=== PATIENT | female | born 1930 | race Caucasian/White ===

== ENCOUNTER 2017-09-15 17:07 | Inpatient (IN) | payer MEDICARE, OTHER ==
[2017-09-15] MEDS ORDERED: Meropenem 1 GM in Sodium Chloride 0.9% 100 ML IV SCH (18:00)
--- NOTE | 2017-09-15 18:05 | EDM.PDOC ---
ED HPI GENERAL MEDICAL PROBLEM - General Chief Complaint: Fever Stated Complaint: BACKPAIN WEAKNESS Time Seen by Provider: 09/15/17 17:30 Source of Information: Reports: Family, Fdc Records History Limitations: Reports: Altered Mental Status - History of Present Illness INITIAL COMMENTS - FREE TEXT/NARRATIVE: c/o cough x 1d and fever x 12h pt with cough last night at NH per family, developed a fever today has had flu vax no prior hx of pneumonia or pul dx, no prior hx of CV disease smoked just a few years as a teenager, smoked is DNR/DNI has gotten weaker in past yr, walked independently 1y ago, used a walker x 6m, in w/c and not walking x 2d h/o recent falls, in ED 8d ago and CT showed severe compression fx T11 that appeared old, has had inc'd back pain nonverbal today d/t dementia, family states she rarely speaks has had freq UTIs in past 2-3y, incontinent, UC 9m ago with 10-50k Staph simulans resistant to levo and cipro last BUN/creat 22/1.0 from 9m ago h/o upper GI bleed 03/03, given 2u PRBC with inc hgb 8.6 to 11.3, last hgb 13.6 from 9m ago has allergy to amoxicillin and Augmentin PO 88% on RA, 92% on 2 l/min NC, temp 38.1, initial HR 95, HR 111 with EKG, RR 20, BP 140/[address] 111, nonspecific t-wave flattening V1-3, III and F Right Hip Pain Score (Numeric/FACES): 3 - Related Data Allergies Allergy/AdvReac Type Severity Reaction Status Date / Time amoxicillin trihydrate Allergy Stomach Verified 09/15/17 17:13 [From Augmentin] Upset potassium clavulanate Allergy Stomach Verified 09/15/17 17:13 [From Augmentin] Upset rofecoxib [From Vioxx] Allergy Stomach Verified 09/15/17 17:13 Upset Home Meds: Home Meds Ferrous Sulfate [Feosol] 325 mg PO BID 11/30/14 [History] Levothyroxine [Synthroid] 50 mcg PO ACBREAKFAST 11/30/14 [History] Cholecalciferol (Vitamin D3) [Vitamin D3] 2,000 unit PO DAILY 03/10/16 [History] Cyanocobalamin (Vitamin B-12) [Vitamin B-12] 1,000 mcg PO DAILY 03/10/16 [ History] Furosemide [Lasix] 40 mg PO DAILY 03/10/16 [History] Gabapentin [Neurontin] 100 mg PO BID 03/10/16 [History] Acetaminophen 1,000 mg PO Q8H PRN #100 tablet 03/13/16 [Rx] Past Medical History Other HEENT History: suspect glaucoma, is not on medications Cardiovascular History: Reports: CAD, Heart Failure, High Cholesterol, Hypertension, SOB on Exertion Gastrointestinal History: Reports: GERD, Other (See Below) Other Gastrointestinal History: hx of abdominal hernia. Genitourinary History: Reports: Urinary Incontinence, UTI, Recurrent [employer] History: Reports: Musculoskeletal History: Reports: Back Pain, Chronic, Osteoarthritis, Other ( See Below) Other Musculoskeletal History: fall 1 week ago Neurological History: Reports: Other (See Below) Other Neuro History: dementia Psychiatric History: Reports: Dementia, Depression Endocrine/Metabolic History: Reports: Hypothyroidism Hematologic History: Reports: Anemia, B12 Deficiency, Iron Deficiency Other Hematologic History: vitamin D deficiency Dermatologic History: Reports: None - Infectious Disease History Infectious Disease History: Reports: Hepatitis A - Past Surgical History HEENT Surgical History: Reports: Cataract Surgery Other Respiratory Surgeries/Procedures: report says that pt has external dyspnea Endocrine Surgical History: Reports: None Social & Family History - Family History Family Medical History: Noncontributory Cardiac: Reports: Prior Cardiac Arrest Respiratory: Reports: TB Other Respiratory Family Hisory: pt's dad d/t TB Oncologic: Reports: Other (See Below) Other Oncologic Family History: stomach cancer- mother - Tobacco Use Smoking Status *Q: Never Smoker Second Hand Smoke Exposure: No - Caffeine Use Caffeine Use: Reports: None - Alcohol Use Days Per Week of Alcohol Use: 0 - Recreational Drug Use Recreational Drug Use: No ED ROS GENERAL - Review of Systems Review Of Systems: See Below Constitutional: Reports: Fever, Malaise, Weakness, Decreased Appetite. Denies: Night Sweats HEENT: Reports: No Symptoms Respiratory: Reports: Shortness of Breath, Wheezing Cardiovascular: Reports: No Symptoms Endocrine: Reports: No Symptoms GI/Abdominal: Reports: No Symptoms : Reports: Incontinence Musculoskeletal: Reports: No Symptoms Skin: Reports: No Symptoms Neurological: Reports: Confusion, Trouble Speaking, Difficulty Walking Psychiatric: Reports: No Symptoms Hematologic/Lymphatic: Reports: No Symptoms Immunologic: Reports: No Symptoms ED EXAM, GENERAL - Physical Exam Exam: See Below Exam Limited By: No Limitations General Appearance: Alert, WD/WN, Mild Distress, Other (makes eye contact, follows commands (open mouth, say ah), does not reply to questions, alert) Eye Exam: Bilateral Eye: Normal Inspection Ears: Normal External Exam Nose: Normal Inspection, Normal Mucosa, No Blood Throat/Mouth: Normal Inspection, Normal Lips, Normal Gums, Normal Oropharynx, Normal Voice, No Airway Compromise Head: Atraumatic, Normocephalic Neck: Normal Inspection, Supple, Non-Tender, Full Range of Motion. No: Carotid Bruit, Lymphadenopathy (R), Lymphadenopathy (L) Respiratory/Chest: No Respiratory Distress, No Accessory Muscle Use, Other ( rales at R anterior chest and LLL posteriorly, no rales at R base, fair AE, symmetric, no cough observed, no wheeze appreciated, no dyspnea, no accessory muscles) Cardiovascular: Regular Rate, Rhythm, Other (2/6 YAYO at LSB, Ras wraps around both LEs, 1-2+ DP pulse b/l, trace pretib edema b/l, no foot edema, symmetric) GI/Abdominal: Normal Bowel Sounds, Soft, Non-Tender, No Organomegaly, No Distention, No Mass, Other (obese). No: Rigid, Rebound Extremities: Normal Inspection, Non-Tender Neurological: Alert, No Motor/Sensory Deficits, Slow to Respond Skin Exam: Warm Lymphatic: No Adenopathy Course - Vital Signs Last Recorded V/S: Last Vital Signs Temp 38.1 C 09/15/17 17:15 Pulse 95 09/15/17 17:15 Resp 20 09/15/17 17:15 BP 140/81 09/15/17 17:15 Pulse Ox 92 L 09/15/17 17:15 - Orders/Labs/Meds Orders: Active Orders 24 hr Category Date Time Status EKG Documentation Completion [RC] ASDIRECTED Care 09/15/17 17:46 Ordered Chest 1V Frontal [CR] Stat Exams 09/15/17 17:44 Ordered CULTURE BLOOD [BC] Urgent Lab 09/15/17 17:46 Ordered CULTURE BLOOD [BC] Urgent Lab 09/15/17 17:46 Ordered UA W/MICROSCOPIC [URIN] Stat Lab 09/15/17 17:44 Ordered UA W/O MICROSCOPIC [URIN] Stat Lab 09/15/17 19:08 Ordered Meropenem [Merrem] 1 gm Med 09/15/17 18:00 Ordered Sodium Chloride 0.9% [Normal Saline] 100 ml IV Q8H Sodium Chloride 0.9% [Saline Flush] Med 09/15/17 18:11 Active 10 ml FLUSH ASDIRECTED PRN Blood Culture x2 Reflex Set [OM.PC] Urgent Oth 09/15/17 17:44 Ordered Saline Lock Insert [OM.PC] Routine Oth 09/15/17 18:11 Ordered EKG 12 Lead [EK] Routine Ther 09/15/17 17:44 Ordered Medication Orders Meropenem 1 gm/ Sodium (Chloride) 100 mls @ 200 mls/hr IV Q8H ROXANA Last Admin: 09/15/17 19:02 Dose: 200 mls/hr Sodium Chloride (Saline Flush) 10 ml FLUSH ASDIRECTED PRN PRN Reason: Keep Vein Open Last Admin: 09/15/17 18:12 Dose: 10 ml Labs: Laboratory Tests 09/15/17 09/15/17 09/15/17 Range/Units 18:00 18:00 18:00 WBC 5.5 (4.5-12.0) X10-3/uL RBC 4.71 (3.23-5.20) x10(6)uL Hgb 14.0 (11.5-15.5) g/dL Hct 41.9 (30.0-51.3) % MCV 89.0 (80-96) fL MCH 29.7 (27.7-33.6) pg MCHC 33.4 (32.2-35.4) g/dL RDW 14.3 (11.5-15.5) % Plt Count 205 (125-369) X10(3)uL MPV 10.4 (7.4-10.4) fL Neut % (Auto) 56.3 (46-82) % Lymph % (Auto) 30.5 (13-37) % Keith % (Auto) 11.9 (4-12) % Eos % (Auto) 0 L (1.0-5.0) % Baso % (Auto) 1 (0-2) % Neut # (Auto) 3.1 (1.6-8.3) # Lymph # (Auto) 1.7 (0.6-5.0) # Keith # (Auto) 0.7 (0.0-1.3) # Eos # (Auto) 0.0 (0.0-0.8) # Baso # (Auto) 0.0 (0.0-0.2) # Sodium 143 (135-145) mmol/L Potassium 4.1 (3.5-5.3) mmol/L Chloride 102 (100-110) mmol/L Carbon Dioxide 33 H (21-32) mmol/L BUN 15 (7-18) mg/dL Creatinine 1.1 H (0.55-1.02) mg/dL Est Cr Clr Drug Dosing 30.37 mL/min Estimated GFR (MDRD) 47 L (>60) BUN/Creatinine Ratio 13.6 (9-20) Glucose 109 (80-116) mg/dL Lactic Acid (0.4-2.2) mmol/L Calcium 8.8 (8.6-10.2) mg/dL Total Bilirubin 0.2 (0.1-1.3) mg/dL AST 61 H (5-25) IU/L ALT 60 H (12-36) U/L Alkaline Phosphatase 143 H (56-112) IU/L Troponin I < 0.017 L (<0.017-0.056) ng/mL C-Reactive Protein 5.0 H* (0.5-0.9) mg/dL NT-Pro-B Natriuret Pep 585 H (<=450) pg/mL Total Protein 7.0 (6.0-8.0) g/dL Albumin 2.9 L (3.2-4.6) g/dL Globulin 4.1 g/dL Albumin/Globulin Ratio 0.7 Urine Color (YELLOW) Urine Appearance (CLEAR) Urine pH (5.0-6.5) Ur Specific [place] (1.010-1.025) Urine Protein (NEGATIVE) mg/dL Urine Glucose (UA) (NEGATIVE) mg/dL Urine Ketones (NEGATIVE) mg/dL Urine Occult Blood (NEGATIVE) Urine Nitrite (NEGATIVE) Urine Bilirubin (NEGATIVE) Urine Urobilinogen (NEGATIVE) mg/dL Ur Leukocyte Esterase (NEGATIVE) Urine RBC Urine WBC Ur Epithelial Cells Ur Squamous Epith Cells Ur Renal Epithelial Cell Calcium Oxalate Crystal Uric Acid Crystals Triple Phos Crystals Other Crystals Amorphous Sediment Urine Bacteria Hyaline Casts Fine Granular Casts Coarse Granular Casts Waxy Casts RBC Casts WBC Casts Urine Mucus Urine Trichomonas Urine Yeast Urine Sperm Ur Oval Fat Bodies Urinalysis Comment 09/15/17 09/15/17 Range/Units 18:00 18:40 WBC (4.5-12.0) X10-3/uL RBC (3.23-5.20) x10(6)uL Hgb (11.5-15.5) g/dL Hct (30.0-51.3) % MCV (80-96) fL MCH (27.7-33.6) pg MCHC (32.2-35.4) g/dL RDW (11.5-15.5) % Plt Count (125-369) X10(3)uL MPV (7.4-10.4) fL Neut % (Auto) (46-82) % Lymph % (Auto) (13-37) % Keith % (Auto) (4-12) % Eos % (Auto) (1.0-5.0) % Baso % (Auto) (0-2) % Neut # (Auto) (1.6-8.3) # Lymph # (Auto) (0.6-5.0) # Keith # (Auto) (0.0-1.3) # Eos # (Auto) (0.0-0.8) # Baso # (Auto) (0.0-0.2) # Sodium (135-145) mmol/L Potassium (3.5-5.3) mmol/L Chloride (100-110) mmol/L Carbon Dioxide (21-32) mmol/L BUN (7-18) mg/dL Creatinine (0.55-1.02) mg/dL Est Cr Clr Drug Dosing mL/min Estimated GFR (MDRD) (>60) BUN/Creatinine Ratio (9-20) Glucose (80-116) mg/dL Lactic Acid 0.7 (0.4-2.2) mmol/L Calcium (8.6-10.2) mg/dL Total Bilirubin (0.1-1.3) mg/dL AST (5-25) IU/L ALT (12-36) U/L Alkaline Phosphatase (56-112) IU/L Troponin I (<0.017-0.056) ng/mL C-Reactive Protein (0.5-0.9) mg/dL NT-Pro-B Natriuret Pep (<=450) pg/mL Total Protein (6.0-8.0) g/dL Albumin (3.2-4.6) g/dL Globulin g/dL Albumin/Globulin Ratio Urine Color Yellow (YELLOW) Urine Appearance Slightly cloudy (CLEAR) Urine pH 5.0 (5.0-6.5) Ur Specific [place] 1.020 (1.010-1.025) Urine Protein Negative (NEGATIVE) mg/dL Urine Glucose (UA) Normal (NEGATIVE) mg/dL Urine Ketones Negative (NEGATIVE) mg/dL Urine Occult Blood Large H (NEGATIVE) Urine Nitrite Negative (NEGATIVE) Urine Bilirubin Negative (NEGATIVE) Urine Urobilinogen 1 H (NEGATIVE) mg/dL Ur Leukocyte Esterase Negative (NEGATIVE) Urine RBC Cancelled Urine WBC Cancelled Ur Epithelial Cells Cancelled Ur Squamous Epith Cells Cancelled Ur Renal Epithelial Cell Cancelled Calcium Oxalate Crystal Cancelled Uric Acid Crystals Cancelled Triple Phos Crystals Cancelled Other Crystals Cancelled Amorphous Sediment Cancelled Urine Bacteria Cancelled Hyaline Casts Cancelled Fine Granular Casts Cancelled Coarse Granular Casts Cancelled Waxy Casts Cancelled RBC Casts Cancelled WBC Casts Cancelled Urine Mucus Cancelled Urine Trichomonas Cancelled Urine Yeast Cancelled Urine Sperm Cancelled Ur Oval Fat Bodies Cancelled Urinalysis Comment Cancelled Meds: Medications Generic Name Dose Route Start Last Admin Trade Name Freq PRN Reason Stop Dose Admin Meropenem 1 gm/ Sodium 100 mls @ 200 mls/hr 09/15/17 18:00 09/15/17 19:02 Chloride IV 200 mls/hr Q8H ROXANA Administration Sodium Chloride 10 ml 09/15/17 18:11 09/15/17 18:12 Saline Flush FLUSH 10 ml ASDIRECTED PRN Administration Keep Vein Open - Re-Assessments/Exams Free Text/Narrative Re-Assessment/Exam: 09/15/17 19:12 CBC neg with WBC 5 and no shift, however CRP 5.0 CxR 1 view with haziness at L base c/w LLL pneumonia (also rales at L base) lactic acid 0.7, creat 1.1 and baseline u/a neg will admit being given meropenem 1 gm IV 8h d/t h/o PCN allergy and prior Staph resistance to levo and cipro family agrees pneumonia appears to be at an early stage 09/15/17 19:15 Departure - Departure Time of Disposition: 19:14 Disposition: Admitted As Inpatient 67 Condition: Good Clinical Impression: Left lower lobe pneumonia, Elevated LFTs, Elevated brain natriuretic peptide ( BNP) level, DNR (do not resuscitate), DNI (do not intubate), Hypoalbuminemia - Discharge Information Referrals: Lesley Gamboa, [employer] [Primary Care Provider] - Forms: ED Department Discharge - My Orders Last 24 Hours: My Active Orders 09/15/17 17:44 Chest 1V Frontal [CR] Stat UA W/MICROSCOPIC [URIN] Stat Blood Culture x2 Reflex Set [OM.PC] Urgent EKG 12 Lead [EK] Routine 09/15/17 17:46 EKG Documentation Completion [RC] ASDIRECTED CULTURE BLOOD [BC] Urgent CULTURE BLOOD [BC] Urgent 09/15/17 18:00 Meropenem [Merrem] 1 gm Sodium Chloride 0.9% [Normal Saline] 100 ml IV Q8H 09/15/17 18:11 Sodium Chloride 0.9% [Saline Flush] 10 ml FLUSH ASDIRECTED PRN Saline Lock Insert [OM.PC] Routine 09/15/17 19:08 UA W/O MICROSCOPIC [URIN] Stat - Assessment/Plan Last 24 Hours: My Active Orders 09/15/17 17:44 Chest 1V Frontal [CR] Stat UA W/MICROSCOPIC [URIN] Stat Blood Culture x2 Reflex Set [OM.PC] Urgent EKG 12 Lead [EK] Routine 09/15/17 17:46 EKG Documentation Completion [RC] ASDIRECTED CULTURE BLOOD [BC] Urgent CULTURE BLOOD [BC] Urgent 09/15/17 18:00 Meropenem [Merrem] 1 gm Sodium Chloride 0.9% [Normal Saline] 100 ml IV Q8H 09/15/17 18:11 Sodium Chloride 0.9% [Saline Flush] 10 ml FLUSH ASDIRECTED PRN Saline Lock Insert [OM.PC] Routine 09/15/17 19:08 UA W/O MICROSCOPIC [URIN] Stat
[2017-09-15] MEDS: Sodium Chloride 0.9% 10 ML Syringe FLUSH PRN ×2 (18:12→20:36)
[2017-09-15] MEDS ORDERED: Sodium Chloride 0.9% 10 ML Syringe FLUSH PRN (19:19)
[2017-09-15] MEDS ORDERED: Acetaminophen 325 MG Tab PO PRN (19:19)
[2017-09-15] MEDS ORDERED: Magnesium Hydroxide 400 MG/5 ML Susp 30 ML Cup PO PRN (19:19)
[2017-09-15] MEDS ORDERED: Ondansetron 4 MG/2 ML SDV IV PRN (19:19)
[2017-09-15] MEDS ORDERED: Bisacodyl 5 MG Tab PO PRN (19:19)
[2017-09-15] MEDS: Gabapentin 100 MG Cap PO SCH (20:33)
[2017-09-15] MEDS: Ferrous Sulfate 325 MG Tab PO SCH (20:33)
[2017-09-15] MEDS: Enoxaparin 40 MG/0.4 ML Syringe SUBCUT SCH (20:34)
[2017-09-15] MEDS: Pantoprazole 40 MG Vial IVPUSH SCH (20:34)
[2017-09-15] MEDS: Albuterol 0.083% 2.5 MG/3 ML Neb Soln NEB SCH (20:38)
[2017-09-15] MEDS: Acetaminophen/HYDROcodone 325-7.5 MG Tab PO PRN (21:10)
[2017-09-15] MEDS: Memantine 10 MG Tab PO SCH (21:49)
[2017-09-16] MEDS: Levothyroxine 50 MCG Tab PO SCH (05:10)
[2017-09-16] MEDS: Pantoprazole 40 MG Vial IVPUSH SCH (06:35)
[2017-09-16] MEDS: Sodium Chloride 0.9% 10 ML Syringe FLUSH PRN ×2 (06:35→08:47)
[2017-09-16] MEDS: Acetaminophen/HYDROcodone 325-7.5 MG Tab PO PRN ×3 (07:15→19:17)
[2017-09-16] MEDS ORDERED: Meropenem 1 GM SDV IV SCH (08:00)
[2017-09-16] MEDS ORDERED: Meropenem 1 GM in Sodium Chloride 0.9% 100 ML IV SCH (08:00)
--- NOTE | 2017-09-16 08:09 | PCM.HP ---
H&P History of Present Illness - General Date of Service: 09/16/17 Admit Problem/Dx: Admission Diagnosis/Problem Admission Diagnosis/Problem Left lower lobe pneumonia Source of Information: Old Records History Limitations: Reports: Altered Mental Status - History of Present Illness Initial Comments - Free Text/Narative: Amina is an 87-year-old female admitted through the ER last night. She presented a cough for a day fever for a couple days low-grade. Diagnosed with left lower lobe pneumonia. She has had decreased energy,and failing health over the last couple months .She also has had frequent falls. Betty has dementia that has been stable, a compression fracture T11 that was discovered about 8 days ago, pain difficult to control. She also has major depression that has been well-controlled. She has obesity, hyperlipidemia and hypertension stable. History is difficult because patient is mostly nonverbal therefore I obtained this hystory from the clinic records and nursing staff. Right Hip Pain Score (Numeric/FACES): 4 Lower Back Pain Score (Numeric/FACES): 2 - Related Data Allergies/Adverse Reactions: Allergies Allergy/AdvReac Type Severity Reaction Status Date / Time amoxicillin trihydrate Allergy Stomach Verified 09/15/17 17:13 [From Augmentin] Upset potassium clavulanate Allergy Stomach Verified 09/15/17 17:13 [From Augmentin] Upset rofecoxib [From Vioxx] Allergy Stomach Verified 09/15/17 17:13 Upset Home Medications: Home Meds Ferrous Sulfate [Feosol] 325 mg PO DAILY 11/30/14 [History] Levothyroxine [Synthroid] 50 mcg PO ACBREAKFAST 11/30/14 [History] Cholecalciferol (Vitamin D3) [Vitamin D3] 2,000 unit PO DAILY 03/10/16 [History] Cyanocobalamin (Vitamin B-12) [Vitamin B-12] 1,000 mcg PO DAILY 03/10/16 [ History] Furosemide [Lasix] 40 mg PO DAILY 03/10/16 [History] Gabapentin [Neurontin] 100 mg PO DAILY 03/10/16 [History] Acetaminophen 1,000 mg PO Q8H PRN #100 tablet 03/13/16 [Rx] Acetaminophen [Tylenol] 650 mg PO Q4H PRN 09/15/17 [History] Cranberry 500 mg PO DAILY 09/15/17 [History] FLUoxetine HCl [Prozac] 60 mg PO DAILY 09/15/17 [History] Hydrocodone/Acetaminophen [[place] 7.5-325 Tablet] 1 tab PO Q4H PRN 09/15/17 [ History] Memantine HCl [Namenda] 10 mg PO BID 09/15/17 [History] Pantoprazole Sodium [Protonix] 40 mg PO DAILY 09/15/17 [History] Polyethylene Glycol 3350 [Miralax] 17 gm PO DAILY 09/15/17 [History] Vit C/Olga Ac/Lut/Copper/ZnOx [Preservision Lutein Softgel] 1 cap PO BID [History] Past Medical History Other HEENT History: suspect glaucoma, is not on medications Cardiovascular History: Reports: CAD, Heart Failure, High Cholesterol, Hypertension, SOB on Exertion Gastrointestinal History: Reports: GERD, Other (See Below) Other Gastrointestinal History: hx of abdominal hernia. Genitourinary History: Reports: Urinary Incontinence, UTI, Recurrent SPECIALTY THERAPIST History: Reports: Musculoskeletal History: Reports: Back Pain, Chronic, Osteoarthritis, Other ( See Below) Other Musculoskeletal History: fall 1 week ago Neurological History: Reports: Other (See Below) Other Neuro History: dementia Psychiatric History: Reports: Dementia, Depression Endocrine/Metabolic History: Reports: Hypothyroidism Hematologic History: Reports: Anemia, B12 Deficiency, Iron Deficiency Other Hematologic History: vitamin D deficiency Dermatologic History: Reports: None - Infectious Disease History Infectious Disease History: Reports: Hepatitis A - Past Surgical History HEENT Surgical History: Reports: Cataract Surgery Other Respiratory Surgeries/Procedures: report says that pt has external dyspnea Endocrine Surgical History: Reports: None Social & Family History - Family History Family Medical History: Noncontributory Cardiac: Reports: Prior Cardiac Arrest Respiratory: Reports: TB Other Respiratory Family Hisory: pt's dad d/t TB Oncologic: Reports: Other (See Below) Other Oncologic Family History: stomach cancer- mother - Tobacco Use Smoking Status *Q: Never Smoker Second Hand Smoke Exposure: No - Caffeine Use Caffeine Use: Reports: None - Alcohol Use Days Per Week of Alcohol Use: 0 - Recreational Drug Use Recreational Drug Use: No H&P Review of Systems - Review of Systems: Review Of Systems: ROS reveals no pertinent complaints other than HPI. Exam - Exam Exam: See Below - Vital Signs Vital Signs: Last Vital Signs Temp 98.1 F 03/01/18 04:00 Pulse 107 H 09/16/17 04:00 Resp 20 09/16/17 04:00 BP 134/84 09/16/17 04:00 Pulse Ox 94 L 09/16/17 04:00 Weight: 100.244 kg - Exam Quality Assessment: Supplemental Oxygen General: Alert. No: Oriented, Mild Distress HEENT: PERRLA Neck: Supple, Trachea Midline Lungs: Clear to Auscultation Cardiovascular: Regular Rate GI/Abdominal Exam: Non-Tender (Female) Exam: Deferred Rectal (Female) Exam: Deferred Back Exam: Normal Inspection, Muscle Spasm, Paraspinal Tenderness, Vertebral Tenderness Extremities: Leg Pain. No: Pedal Edema, Redness Skin: Warm Neurological: Cranial Nerves Intact Psychiatric: Depressed - Patient Data Lab Results Last 24 hrs: Laboratory Results - last 24 hr 09/16/17 Range/Units 06:15 Troponin I < 0.017 L (<0.017-0.056) ng/mL TSH, Ultra Sensitive 1.35 (0.36-3.74) IU/mL Result Diagrams: 09/15/17 18:00 09/15/17 18:00 *Q Meaningful Use (ADM) - VTE *Q VTE Criteria *Q: - Stroke *Q Stroke Criteria *Q: - AMI *Q AMI Criteria *Q: - Problem List (1) URI (upper respiratory infection) SNOMED Code(s): 35646882 ICD Code: J06.9 - ACUTE UPPER RESPIRATORY INFECTION, UNSPECIFIED Status: Acute Current Visit: Yes Qualifiers: URI type: unspecified viral URI Qualified Code(s): J06.9 - Acute upper respiratory infection, unspecified (2) Physical deconditioning SNOMED Code(s): 03973965644818 ICD Code: R53.81 - OTHER MALAISE Status: Acute Current Visit: Yes (3) Dementia SNOMED Code(s): 98143623 ICD Code: F03.90 - UNSPECIFIED DEMENTIA WITHOUT BEHAVIORAL DISTURBANCE Status: Acute Current Visit: Yes Qualifiers: Dementia type: Alzheimer's disease Alzheimer's disease onset: late-onset (4) Frequent falls SNOMED Code(s): 589826275 ICD Code: R29.6 - REPEATED FALLS Status: Acute Current Visit: Yes (5) MDD (major depressive disorder) SNOMED Code(s): 328643007 ICD Code: F32.9 - MAJOR DEPRESSIVE DISORDER, SINGLE EPISODE, UNSPECIFIED Status: Acute Current Visit: Yes Qualifiers: Major depression recurrence: recurrent Major depression episode severity: moderate (6) ULI (generalized anxiety disorder) SNOMED Code(s): 37089812 ICD Code: F41.1 - GENERALIZED ANXIETY DISORDER Status: Chronic Current Visit: Yes (7) GERD (gastroesophageal reflux disease) SNOMED Code(s): 806097004 ICD Code: K21.9 - GASTRO-ESOPHAGEAL REFLUX DISEASE WITHOUT ESOPHAGITIS Status: Acute Current Visit: Yes Qualifiers: Esophagitis presence: esophagitis presence not specified Qualified Code(s) : K21.9 - Gastro-esophageal reflux disease without esophagitis (8) Anemia SNOMED Code(s): 397392643 ICD Code: D64.9 - ANEMIA, UNSPECIFIED Status: Acute Current Visit: Yes Qualifiers: Anemia type: B12 deficiency (9) Hypothyroidism SNOMED Code(s): 56741868 ICD Code: E03.9 - HYPOTHYROIDISM, UNSPECIFIED Status: Chronic Current Visit: Yes Qualifiers: Hypothyroidism type: unspecified Qualified Code(s): E03.9 - Hypothyroidism , unspecified (10) Macular degeneration SNOMED Code(s): 749106891 ICD Code: H35.30 - UNSPECIFIED MACULAR DEGENERATION Status: Acute Current Visit: Yes Qualifiers: Eye laterality: unspecified (11) Vitamin D deficiency SNOMED Code(s): 05700356 ICD Code: E55.9 - VITAMIN D DEFICIENCY, UNSPECIFIED Status: Acute Current Visit: Yes (12) Compression fracture SNOMED Code(s): 913269995 ICD Code: AIX5592 - Status: Acute Current Visit: Yes Problem List Initiated/Reviewed/Updated: Yes Orders Last 24hrs: Active Orders 24 hr Category Date Time Status Admission Status [Patient Status] [ADT] Routine ADT 09/15/17 19:16 Active Patient Status [ADT] Routine ADT 09/15/17 19:19 Active Insert Urinary Catheter [OM.PC] Q24H Care 09/15/17 19:15 Ordered Oxygen Therapy [RC] PRN Care 09/15/17 19:19 Active RT Aerosol Therapy [RC] ASDIRECTED Care 09/15/17 19:23 Active Up With Assistance [RC] ASDIRECTED Care 09/15/17 19:19 Active Vital Signs [RC] Q4H Care 09/15/17 19:19 Active Regular Diet [DIET] Diet 09/16/17 Breakfast Active Acetaminophen [Tylenol] Med 09/15/17 19:19 Active 650 mg PO Q4H PRN Acetaminophen/HYDROcodone [[place] 325-7.5 MG] Med 09/15/17 20:44 Active 1 tab PO Q4H PRN Albuterol [Proventil Neb Soln] Med 09/15/17 21:00 Active 2.5 mg NEB QIDRT Bisacodyl [Dulcolax] Med 09/15/17 19:19 Active 5 mg PO DAILY PRN Enoxaparin [Lovenox] Med 09/15/17 19:30 Active 40 mg SUBCUT Q24H FLUoxetine [PROzac] Med 09/16/17 09:00 Active 60 mg PO DAILY Ferrous Sulfate Med 09/15/17 21:00 Active 325 mg PO BID Furosemide [Lasix] Med 09/16/17 09:00 Active 40 mg PO DAILY Gabapentin [Neurontin] Med 09/15/17 21:00 Active 100 mg PO BID Levothyroxine [Synthroid] Med 09/16/17 06:00 Active 50 mcg PO DAILY@0600 Magnesium Hydroxide [Milk of Magnesia] Med 09/15/17 19:19 Active 30 ml PO Q12H PRN Memantine [Namenda] Med 09/15/17 21:00 Active 10 mg PO BID Meropenem [Merrem] Med 09/16/17 08:00 Active 1 gm IV Q12H Ondansetron [Zofran] Med 09/15/17 19:19 Active 4 mg IV Q4H PRN Pantoprazole [ProTONIX IV] Med 09/15/17 19:30 Active 40 mg IVPUSH Q12H Polyethylene Glycol 3350 [MiraLAX] Med 09/16/17 09:00 Active 17 gm PO DAILY Sodium Chloride 0.9% [Saline Flush] Med 09/15/17 19:19 Active 10 ml FLUSH ASDIRECTED PRN Saline Lock Insert [OM.PC] Routine Oth 09/15/17 19:19 Ordered Resuscitation Status Routine Resus Stat 09/15/17 19:19 Ordered EKG 12 Lead [EK] AM Ther 09/16/17 05:11 Ordered Medication Orders Acetaminophen (Tylenol) 650 mg PO Q4H PRN PRN Reason: Pain (Mild 1-3)/fever Hydrocodone Bitart/Acetaminophen ([place] 325-7.5 Mg) 1 tab PO Q4H PRN PRN Reason: Pain Last Admin: 09/16/17 07:15 Dose: 1 tab Admin: 09/15/17 21:10 Dose: 1 tab Albuterol (Proventil Neb Soln) 2.5 mg NEB QIDRT [facility] Last Admin: 09/15/17 20:38 Dose: 2.5 mg Bisacodyl (Dulcolax) 5 mg PO DAILY PRN PRN Reason: Constipation Enoxaparin Sodium (Lovenox) 40 mg SUBCUT Q24H [facility] Last Admin: 09/15/17 20:34 Dose: 40 mg Ferrous Sulfate (Ferrous Sulfate) 325 mg PO BID [facility] Last Admin: 09/15/17 20:33 Dose: 325 mg Fluoxetine HCl (Prozac) 60 mg PO DAILY [facility] Furosemide (Lasix) 40 mg PO DAILY [facility] Gabapentin (Neurontin) 100 mg PO BID [facility] Last Admin: 09/15/17 20:33 Dose: 100 mg Levothyroxine Sodium (Synthroid) 50 mcg PO DAILY@0600 [facility] Last Admin: 09/16/17 05:10 Dose: 50 mcg Magnesium Hydroxide (Milk Of Magnesia) 30 ml PO Q12H PRN PRN Reason: Constipation Memantine (Namenda) 10 mg PO BID [facility] Last Admin: 09/15/17 21:49 Dose: 10 mg Meropenem (Merrem) 1 gm IV Q12H [facility] Ondansetron HCl (Zofran) 4 mg IV Q4H PRN PRN Reason: Nausea/Vomiting Pantoprazole Sodium (Protonix Iv) 40 mg IVPUSH Q12H [facility] Last Admin: 09/16/17 06:35 Dose: 40 mg Admin: 09/15/17 20:34 Dose: 40 mg Polyethylene Glycol (Miralax) 17 gm PO DAILY [facility] Sodium Chloride (Saline Flush) 10 ml FLUSH ASDIRECTED PRN PRN Reason: Keep Vein Open Last Admin: 09/16/17 06:35 Dose: 10 ml Admin: 09/15/17 20:36 Dose: 10 ml Admin: 09/15/17 18:12 Dose: 10 ml Sodium Chloride (Saline Flush) 10 ml FLUSH ASDIRECTED PRN PRN Reason: Keep Vein Open Assessment/Plan Comment:: I reviewed the chest x-ray myself am not terribly convinced that she has pneumonia.She has had no objective fever,and no WBC elevation. I will discontinue Meropenem.She may just have bronchitis,or CHF .Additionally,I m not able to explain why she is on oxygen at this time, will try to wean off. I have resumed her home medications. Consult physical and outpatient therapy emergency medical tech to determine disposition after current hospitalization.
[2017-09-16] MEDS: Albuterol 0.083% 2.5 MG/3 ML Neb Soln NEB SCH ×4 (08:39→20:53)
[2017-09-16] MEDS: FLUoxetine 20 MG Cap PO SCH (08:46)
[2017-09-16] MEDS: Gabapentin 100 MG Cap PO SCH ×2 (08:46→20:53)
[2017-09-16] MEDS: Furosemide 40 MG Tab PO SCH (08:46)
[2017-09-16] MEDS: Memantine 10 MG Tab PO SCH ×2 (08:46→20:53)
[2017-09-16] MEDS: Polyethylene Glycol 3350 Powder 17 GM Packet PO SCH (08:46)
[2017-09-16] MEDS: Ferrous Sulfate 325 MG Tab PO SCH ×2 (08:46→20:53)
[2017-09-16] MEDS ORDERED: Acetaminophen 500 MG Tab PO PRN (08:52)
[2017-09-16] MEDS ORDERED: Acetaminophen 325 MG Tab PO PRN (08:52)
[2017-09-16] MEDS ORDERED: FLUoxetine 20 MG Cap PO SCH (09:00)
[2017-09-16] MEDS: Lutein/Minerals/Vitamin C/Vitamin E Acetate Cap PO SCH ×2 (09:26→20:53)
[2017-09-16] MEDS: Enoxaparin 40 MG/0.4 ML Syringe SUBCUT SCH (19:16)
[2017-09-17] MEDS: Levothyroxine 50 MCG Tab PO SCH (05:17)
[2017-09-17] MEDS: Pantoprazole 40 MG Tab.CR PO SCH (05:17)
[2017-09-17] MEDS: Acetaminophen/HYDROcodone 325-7.5 MG Tab PO PRN ×3 (05:20→21:37)
[2017-09-17] MEDS: Albuterol 0.083% 2.5 MG/3 ML Neb Soln NEB SCH ×4 (07:05→21:37)
--- NOTE | 2017-09-17 07:40 | CR ---
INDICATION: Fever. CHEST: An AP portable upright view of the chest, 09/15/2017 - no comparisons. The heart is enlarged. The aorta is tortuous and calcified. There is question of a mass density behind the heart, which could represent a large fixed hiatal hernia but should be correlated clinically. Overlying snaps are noted. A definite active infiltrate or effusion was not identified, although minimal patchy pneumonia certainly cannot be excluded at the left lung base. Evidence of exogenous obesity is also noted. IMPRESSION: 1. Cannot exclude a minimal patchy pneumonia at the left lung base - costophrenic angle. 2. ASHD with cardiomegaly - no definite CHF. 3. Exogenous obesity. MTDD
[2017-09-17] MEDS ORDERED: Levofloxacin/Dextrose 5%-Water 500 MG in Premix Bag 1 BAG IV SCH (08:30)
[2017-09-17] MEDS: Furosemide 40 MG Tab PO SCH (08:41)
[2017-09-17] MEDS: Ferrous Sulfate 325 MG Tab PO SCH ×2 (08:41→21:36)
[2017-09-17] MEDS: Gabapentin 100 MG Cap PO SCH ×2 (08:41→21:36)
[2017-09-17] MEDS: Polyethylene Glycol 3350 Powder 17 GM Packet PO SCH (08:42)
[2017-09-17] MEDS: FLUoxetine 20 MG Cap PO SCH (08:42)
[2017-09-17] MEDS: Memantine 10 MG Tab PO SCH ×2 (08:42→21:36)
[2017-09-17] MEDS: Lutein/Minerals/Vitamin C/Vitamin E Acetate Cap PO SCH ×2 (08:42→21:37)
--- NOTE | 2017-09-17 09:30 | PCM.PN ---
- General Info Date of Service: 09/17/17 Admission Dx/Problem (Free Text): Patient does not respond to questions. She asked me why she was here but did not answer any my questions. - Patient Data Vitals - Most Recent: Last Vital Signs Temp 97.6 F 09/17/17 05:00 Pulse 96 09/17/17 07:20 Resp 18 09/17/17 05:00 BP 134/75 09/17/17 05:00 Pulse Ox 92 L 09/17/17 07:20 Weight - Most Recent: 221 lb I&O - Last 24 Hours: Intake & Output 09/16/17 09/17/17 09/17/17 22:59 06:59 14:59 Intake Total 200 240 Output Total 200 Balance -200 200 240 Lab Results Last 24 Hours: Laboratory Results - last 24 hr 09/17/17 09/17/17 Range/Units 06:10 06:10 WBC 4.1 L (4.5-12.0) X10-3/uL RBC 4.18 (3.23-5.20) x10(6)uL Hgb 12.2 (11.5-15.5) g/dL Hct 37.4 (30.0-51.3) % MCV 89.4 (80-96) fL MCH 29.2 (27.7-33.6) pg MCHC 32.6 (32.2-35.4) g/dL RDW 14.6 (11.5-15.5) % Plt Count 181 (125-369) X10(3)uL MPV 10.6 H (7.4-10.4) fL Neut % (Auto) 43.5 L (46-82) % Lymph % (Auto) 41.7 H (13-37) % [place] % (Auto) 12.0 (4-12) % Eos % (Auto) 2 (1.0-5.0) % Baso % (Auto) 1 (0-2) % Neut # (Auto) 1.8 (1.6-8.3) # Lymph # (Auto) 1.7 (0.6-5.0) # [place] # (Auto) 0.5 (0.0-1.3) # Eos # (Auto) 0.1 (0.0-0.8) # Baso # (Auto) 0.0 (0.0-0.2) # Sodium 143 (135-145) mmol/L Potassium 3.9 (3.5-5.3) mmol/L Chloride 105 (100-110) mmol/L Carbon Dioxide 33 H (21-32) mmol/L BUN 16 (7-18) mg/dL Creatinine 0.9 (0.55-1.02) mg/dL Est Cr Clr Drug Dosing 35.49 mL/min Estimated GFR (MDRD) 59 L (>60) BUN/Creatinine Ratio 17.8 (9-20) Glucose 90 (80-116) mg/dL Calcium 8.6 (8.6-10.2) mg/dL Med Orders - Current: Current Medications Acetaminophen (Tylenol Extra Strength) 1,000 mg PO Q8H PRN PRN Reason: Pain Hydrocodone Bitart/Acetaminophen ([place] 325-7.5 Mg) 1 tab PO Q4H PRN PRN Reason: Pain Last Admin: 09/17/17 05:20 Dose: 1 tab Albuterol (Proventil Neb Soln) 2.5 mg NEB QIDRT [facility] Last Admin: 09/17/17 07:05 Dose: 2.5 mg Bisacodyl (Dulcolax) 5 mg PO DAILY PRN PRN Reason: Constipation Enoxaparin Sodium (Lovenox) 40 mg SUBCUT Q24H [facility] Last Admin: 09/16/17 19:16 Dose: 40 mg Ferrous Sulfate (Ferrous Sulfate) 325 mg PO BID [facility] Last Admin: 09/17/17 08:41 Dose: 325 mg Fluoxetine HCl (Prozac) 60 mg PO DAILY [facility] Last Admin: 09/17/17 08:42 Dose: 60 mg Furosemide (Lasix) 40 mg PO DAILY [facility] Last Admin: 09/17/17 08:41 Dose: 40 mg Gabapentin (Neurontin) 100 mg PO BID [facility] Last Admin: 09/17/17 08:41 Dose: 100 mg Levofloxacin/Dextrose 500 mg/ (Premix) 100 mls @ 100 mls/hr IV Q24H [facility] Last Admin: 09/17/17 08:46 Dose: 100 mls/hr Vancomycin HCl 1,000 mg/Vancomycin HCl 500 mg/ Sodium Chloride 500 mls @ 333.333 mls/hr IV Q24H [facility] Levothyroxine Sodium (Synthroid) 50 mcg PO DAILY@0600 [facility] Last Admin: 09/17/17 05:17 Dose: 50 mcg Magnesium Hydroxide (Milk Of Magnesia) 30 ml PO Q12H PRN PRN Reason: Constipation Memantine (Namenda) 10 mg PO BID [facility] Last Admin: 09/17/17 08:42 Dose: 10 mg Ondansetron HCl (Zofran) 4 mg IV Q4H PRN PRN Reason: Nausea/Vomiting Pantoprazole Sodium (Protonix) 40 mg PO DAILY@0600 [facility] Last Admin: 09/17/17 05:17 Dose: 40 mg Polyethylene Glycol (Miralax) 17 gm PO DAILY [facility] Last Admin: 09/17/17 08:42 Dose: 17 gm Sodium Chloride (Saline Flush) 10 ml FLUSH ASDIRECTED PRN PRN Reason: Keep Vein Open Last Admin: 09/16/17 08:47 Dose: 10 ml Sodium Chloride (Saline Flush) 10 ml FLUSH ASDIRECTED PRN PRN Reason: Keep Vein Open Vancomycin HCl (Pharmacy To Dose - Vancomycin) 1 dose .XX ASDIRECTED [facility] Vit C/Vit E/Zinc/Copper/Lutein (Ocuvite Lutein) 1 each PO BID [facility] Last Admin: 09/17/17 08:42 Dose: 1 each Discontinued Medications Acetaminophen (Tylenol) 650 mg PO Q4H PRN PRN Reason: Pain (Mild 1-3)/fever Meropenem 1 gm/ Sodium (Chloride) 100 mls @ 200 mls/hr IV Q8H [facility] Last Admin: 09/15/17 19:02 Dose: 200 mls/hr Meropenem 1 gm/ Sodium (Chloride) 100 mls @ 200 mls/hr IV Q12H [facility] Meropenem (Merrem) 1 gm IV Q12H [facility] Last Admin: 09/16/17 08:47 Dose: 1 gm Pantoprazole Sodium (Protonix Iv) 40 mg IVPUSH Q12H [facility] Last Admin: 09/16/17 06:35 Dose: 40 mg - Exam General: Alert, Oriented, Cooperative Neck: Supple Lungs: Clear to Auscultation, Normal Respiratory Effort Cardiovascular: Regular Rate, Regular Rhythm, No Murmurs Extremities: No Pedal Edema - Problem List & Annotations (1) Pneumonia SNOMED Code(s): 231434092 Code(s): J18.9 - PNEUMONIA, UNSPECIFIED ORGANISM Status: Acute Current Visit: Yes Qualifiers: Laterality: left Lung location: lower lobe of lung (2) Bacteremia SNOMED Code(s): 6484692 Code(s): R78.81 - BACTEREMIA Status: Acute Current Visit: Yes (3) Palliative care status SNOMED Code(s): 440572978 Code(s): Z51.5 - ENCOUNTER FOR PALLIATIVE CARE Status: Acute Current Visit: Yes (4) Dementia SNOMED Code(s): 07385561 Code(s): F03.90 - UNSPECIFIED DEMENTIA WITHOUT BEHAVIORAL DISTURBANCE Status: Acute Current Visit: Yes Qualifiers: Dementia type: Alzheimer's disease Alzheimer's disease onset: late-onset - Problem List Review Problem List Initiated/Reviewed/Updated: Yes - My Orders Last 24 Hours: My Active Orders 09/17/17 08:30 Levofloxacin/Dextrose 5%-Water [Levaquin in D5W 500 MG/100 ML] 500 mg Premix Bag 1 bag IV Q24H 09/17/17 09:00 Vancomycin Pharmacy to Dose [Pharmacy to Dose - Vancomycin] 1 dose .XX ASDIRECTED 09/17/17 09:15 LACTIC ACID [CHEM] Routine 09/17/17 10:00 Vancomycin 1,000 mg Vancomycin 500 mg Sodium Chloride 0.9% [Normal Saline] 500 ml IV Q24H - Plan Plan:: 1. Start Vanco and Levaquin because of bacteremia. 2. PT/OT. 3. Continue current care.
[2017-09-17] MEDS: Sodium Chloride 0.9% 10 ML Syringe FLUSH PRN ×3 (09:48→14:40)
[2017-09-17] MEDS ORDERED: Levofloxacin/Dextrose 5%-Water 50 ML IV ONE (11:15)
[2017-09-17] MEDS ORDERED: Levofloxacin/Dextrose 5%-Water 100 ML IV ONE (11:15)
[2017-09-17] MEDS: Enoxaparin 40 MG/0.4 ML Syringe SUBCUT SCH (18:56)
[2017-09-18] MEDS: Acetaminophen/HYDROcodone 325-7.5 MG Tab PO PRN ×3 (02:00→21:17)
[2017-09-18] MEDS: Levothyroxine 50 MCG Tab PO SCH (06:15)
[2017-09-18] MEDS: Pantoprazole 40 MG Tab.CR PO SCH (06:15)
[2017-09-18] MEDS: Albuterol 0.083% 2.5 MG/3 ML Neb Soln NEB SCH ×4 (07:04→21:27)
--- NOTE | 2017-09-18 08:28 | PCM.PN ---
- General Info Date of Service: 09/18/17 Admission Dx/Problem (Free Text): Patient is without concerns. She states her coughing is better. She denies fevers, chills or chest pain. - Patient Data Vitals - Most Recent: Last Vital Signs Temp 98.3 F 09/18/17 04:00 Pulse 88 09/18/17 04:00 Resp 18 09/18/17 04:00 BP 113/58 L 09/18/17 04:00 Pulse Ox 91 L 09/18/17 04:00 Weight - Most Recent: 221 lb I&O - Last 24 Hours: Intake & Output 09/17/17 09/18/17 09/18/17 22:59 06:59 14:59 Intake Total 225 125 Output Total 0 Balance 225 125 Lab Results Last 24 Hours: Laboratory Results - last 24 hr 09/17/17 Range/Units 09:15 Lactic Acid 1.5 (0.4-2.2) mmol/L Med Orders - Current: Current Medications Acetaminophen (Tylenol Extra Strength) 1,000 mg PO Q8H PRN PRN Reason: Pain Hydrocodone Bitart/Acetaminophen ([place] 325-7.5 Mg) 1 tab PO Q4H PRN PRN Reason: Pain Last Admin: 09/18/17 02:00 Dose: 1 tab Albuterol (Proventil Neb Soln) 2.5 mg NEB QIDRT [facility] Last Admin: 09/18/17 07:04 Dose: 2.5 mg Bisacodyl (Dulcolax) 5 mg PO DAILY PRN PRN Reason: Constipation Enoxaparin Sodium (Lovenox) 40 mg SUBCUT Q24H [facility] Last Admin: 09/17/17 18:56 Dose: 40 mg Ferrous Sulfate (Ferrous Sulfate) 325 mg PO BID [facility] Last Admin: 09/17/17 21:36 Dose: 325 mg Fluoxetine HCl (Prozac) 60 mg PO DAILY [facility] Last Admin: 09/17/17 08:42 Dose: 60 mg Furosemide (Lasix) 40 mg PO DAILY [facility] Last Admin: 09/17/17 08:41 Dose: 40 mg Gabapentin (Neurontin) 100 mg PO BID [facility] Last Admin: 09/17/17 21:36 Dose: 100 mg Vancomycin HCl 1,000 mg/Vancomycin HCl 500 mg/ Sodium Chloride 500 mls @ 333.333 mls/hr IV Q24H [facility] Last Infusion: 03/02/18 09:52 Dose: 200 mls/hr Levofloxacin/Dextrose (Levaquin In D5w 750 Mg/150 Ml) 150 mls @ 100 mls/hr IV Q48H [facility] Levothyroxine Sodium (Synthroid) 50 mcg PO DAILY@0600 [facility] Last Admin: 09/18/17 06:15 Dose: 50 mcg Magnesium Hydroxide (Milk Of Magnesia) 30 ml PO Q12H PRN PRN Reason: Constipation Memantine (Namenda) 10 mg PO BID [facility] Last Admin: 09/17/17 21:36 Dose: 10 mg Ondansetron HCl (Zofran) 4 mg IV Q4H PRN PRN Reason: Nausea/Vomiting Pantoprazole Sodium (Protonix) 40 mg PO DAILY@0600 [facility] Last Admin: 09/18/17 06:15 Dose: 40 mg Polyethylene Glycol (Miralax) 17 gm PO DAILY [facility] Last Admin: 09/17/17 08:42 Dose: 17 gm Sodium Chloride (Saline Flush) 10 ml FLUSH ASDIRECTED PRN PRN Reason: Keep Vein Open Last Admin: 09/17/17 14:40 Dose: 10 ml Sodium Chloride (Saline Flush) 10 ml FLUSH ASDIRECTED PRN PRN Reason: Keep Vein Open Vancomycin HCl (Pharmacy To Dose - Vancomycin) 1 dose .XX ASDIRECTED [facility] Vit C/Vit E/Zinc/Copper/Lutein (Ocuvite Lutein) 1 each PO BID [facility] Last Admin: 09/17/17 21:37 Dose: 1 each Discontinued Medications Acetaminophen (Tylenol) 650 mg PO Q4H PRN PRN Reason: Pain (Mild 1-3)/fever Meropenem 1 gm/ Sodium (Chloride) 100 mls @ 200 mls/hr IV Q8H [facility] Last Admin: 09/15/17 19:02 Dose: 200 mls/hr Meropen[place] 1 gm/ Sodium (Chloride) 100 mls @ 200 mls/hr IV Q12H [facility] Levofloxacin/Dextrose 500 mg/ (Premix) 100 mls @ 100 mls/hr IV Q24H [facility] Last Admin: 09/17/17 08:46 Dose: 100 mls/hr Levofloxacin/Dextrose (Levaquin In D5w 250 Mg/50 Ml) 50 mls @ 25 mls/hr IV ONETIME ONE Stop: 09/17/17 13:14 Last Admin: 09/17/17 12:30 Dose: 25 mls/hr Meropenem (Merrem) 1 gm IV Q12H [facility] Last Admin: 09/16/17 08:47 Dose: 1 gm Pantoprazole Sodium (Protonix Iv) 40 mg IVPUSH Q12H [facility] Last Admin: 09/16/17 06:35 Dose: 40 mg - Exam General: Alert, Cooperative Lungs: Decreased Breath Sounds. No: Crackles, Rales, Rhonchi Cardiovascular: Regular Rate, Regular Rhythm, No Murmurs Extremities: No Pedal Edema - Problem List & Annotations (1) Pneumonia SNOMED Code(s): 531525627 Code(s): J18.9 - PNEUMONIA, UNSPECIFIED ORGANISM Status: Acute Current Visit: Yes Qualifiers: Laterality: left Lung location: lower lobe of lung (2) Bacteremia SNOMED Code(s): 3401095 Code(s): R78.81 - BACTEREMIA Status: Acute Current Visit: Yes (3) Palliative care status SNOMED Code(s): 582779448 Code(s): Z51.5 - ENCOUNTER FOR PALLIATIVE CARE Status: Acute Current Visit: Yes (4) Dementia SNOMED Code(s): 03018051 Code(s): F03.90 - UNSPECIFIED DEMENTIA WITHOUT BEHAVIORAL DISTURBANCE Status: Acute Current Visit: Yes Qualifiers: Dementia type: Alzheimer's disease Alzheimer's disease onset: late-onset - Problem List Review Problem List Initiated/Reviewed/Updated: Yes - My Orders Last 24 Hours: My Active Orders 09/17/17 09:00 Vancomycin Pharmacy to Dose [Pharmacy to Dose - Vancomycin] 1 dose .XX ASDIRECTED 09/17/17 10:00 Vancomycin 1,000 mg Vancomycin 500 mg Sodium Chloride 0.9% [Normal Saline] 500 ml IV Q24H 09/19/17 12:00 Levofloxacin/Dextrose 5%-Water [Levaquin in D5W 750 MG/150 ML] 150 ml IV Q48H 09/20/17 09:30 VANCOMYCIN TROUGH [CHEM] Routine - Plan Plan:: 1. Discussed when the one positive blood culture will come back. Lab states Ceftin. Follow-up on that. 2. Patient looks good so change vitals to Q shift. 3. Up in chair and ambulate when necessary.
[2017-09-18] MEDS: Lutein/Minerals/Vitamin C/Vitamin E Acetate Cap PO SCH ×2 (09:00→21:19)
[2017-09-18] MEDS: FLUoxetine 20 MG Cap PO SCH (09:00)
[2017-09-18] MEDS: Gabapentin 100 MG Cap PO SCH ×2 (09:00→21:18)
[2017-09-18] MEDS: Memantine 10 MG Tab PO SCH ×2 (09:00→21:18)
[2017-09-18] MEDS: Furosemide 40 MG Tab PO SCH (09:00)
[2017-09-18] MEDS: Polyethylene Glycol 3350 Powder 17 GM Packet PO SCH (09:00)
[2017-09-18] MEDS: Ferrous Sulfate 325 MG Tab PO SCH ×2 (09:00→21:18)
[2017-09-18] MEDS: Sodium Chloride 0.9% 10 ML Syringe FLUSH PRN (15:42)
[2017-09-18] MEDS: Enoxaparin 40 MG/0.4 ML Syringe SUBCUT SCH (18:54)
[2017-09-19] MEDS: Acetaminophen/HYDROcodone 325-7.5 MG Tab PO PRN ×2 (06:18→23:29)
[2017-09-19] MEDS: Levothyroxine 50 MCG Tab PO SCH (06:18)
[2017-09-19] MEDS: Pantoprazole 40 MG Tab.CR PO SCH (06:18)
[2017-09-19] MEDS: Albuterol 0.083% 2.5 MG/3 ML Neb Soln NEB SCH ×4 (07:21→20:18)
--- NOTE | 2017-09-19 08:09 | PCM.PN ---
- General Info Date of Service: 09/19/17 Admission Dx/Problem (Free Text): Patient is without complaints today. She denies cough, chills, fevers, chest pain or leg swelling. - Patient Data Vitals - Most Recent: Last Vital Signs Temp 97.5 F 09/19/17 07:50 Pulse 101 H 09/19/17 07:50 Resp 18 09/19/17 07:50 BP 124/78 09/19/17 07:50 Pulse Ox 92 L 09/19/17 07:50 Weight - Most Recent: 221 lb I&O - Last 24 Hours: Intake & Output 09/18/17 09/19/17 09/19/17 22:59 06:59 14:59 Intake Total 150 100 Output Total 200 Balance 150 -100 Med Orders - Current: Current Medications Acetaminophen (Tylenol Extra Strength) 1,000 mg PO Q8H PRN PRN Reason: Pain Hydrocodone Bitart/Acetaminophen ([place] 325-7.5 Mg) 1 tab PO Q4H PRN PRN Reason: Pain Last Admin: 09/19/17 06:18 Dose: 1 tab Albuterol (Proventil Neb Soln) 2.5 mg NEB QIDRT [facility] Last Admin: 09/19/17 07:21 Dose: 2.5 mg Bisacodyl (Dulcolax) 5 mg PO DAILY PRN PRN Reason: Constipation Enoxaparin Sodium (Lovenox) 40 mg SUBCUT Q24H [facility] Last Admin: 09/18/17 18:54 Dose: 40 mg Ferrous Sulfate (Ferrous Sulfate) 325 mg PO BID [facility] Last Admin: 09/18/17 21:18 Dose: 325 mg Fluoxetine HCl (Prozac) 60 mg PO DAILY [facility] Last Admin: 09/18/17 09:00 Dose: 60 mg Furosemide (Lasix) 40 mg PO DAILY [facility] Last Admin: 09/18/17 09:00 Dose: 40 mg Gabapentin (Neurontin) 100 mg PO BID [facility] Last Admin: 09/18/17 21:18 Dose: 100 mg Levofloxacin (Levaquin) 750 mg PO Q48H [facility] Levothyroxine Sodium (Synthroid) 50 mcg PO DAILY@0600 [facility] Last Admin: 09/19/17 06:18 Dose: 50 mcg Magnesium Hydroxide (Milk Of Magnesia) 30 ml PO Q12H PRN PRN Reason: Constipation Memantine (Namenda) 10 mg PO BID [facility] Last Admin: 09/18/17 21:18 Dose: 10 mg Pantoprazole Sodium (Protonix) 40 mg PO DAILY@0600 [facility] Last Admin: 09/19/17 06:18 Dose: 40 mg Polyethylene Glycol (Miralax) 17 gm PO DAILY [facility] Last Admin: 09/18/17 09:00 Dose: 17 gm Sodium Chloride (Saline Flush) 10 ml FLUSH ASDIRECTED PRN PRN Reason: Keep Vein Open Last Admin: 09/18/17 15:42 Dose: 10 ml Sodium Chloride (Saline Flush) 10 ml FLUSH ASDIRECTED PRN PRN Reason: Keep Vein Open Vit C/Vit E/Zinc/Copper/Lutein (Ocuvite Lutein) 1 each PO BID [facility] Last Admin: 09/18/17 21:19 Dose: 1 each Discontinued Medications Acetaminophen (Tylenol) 650 mg PO Q4H PRN PRN Reason: Pain (Mild 1-3)/fever [place]open[place] 1 gm/ Sodium (Chloride) 100 mls @ 200 mls/hr IV Q8H [facility] Last Admin: 09/15/17 19:02 Dose: 200 mls/hr [place] 1 gm/ Sodium (Chloride) 100 mls @ 200 mls/hr IV Q12H [facility] Levofloxacin/Dextrose 500 mg/ (Premix) 100 mls @ 100 mls/hr IV Q24H [facility] Last Admin: 09/17/17 08:46 Dose: 100 mls/hr Vancomycin HCl 1,000 mg/Vancomycin HCl 500 mg/ Sodium Chloride 500 mls @ 333.333 mls/hr IV Q24H [facility] Last Admin: 09/18/17 11:01 Dose: 250 mls/hr Levofloxacin/Dextrose (Levaquin In D5w 750 Mg/150 Ml) 150 mls @ 100 mls/hr IV Q48H [facility] Levofloxacin/Dextrose (Levaquin In D5w 250 Mg/50 Ml) 50 mls @ 25 mls/hr IV ONETIME ONE Stop: 09/17/17 13:14 Last Admin: 09/17/17 12:30 Dose: 25 mls/hr Meropenem (Merrem) 1 gm IV Q12H [facility] Last Admin: 09/16/17 08:47 Dose: 1 gm Ondansetron HCl (Zofran) 4 mg IV Q4H PRN PRN Reason: Nausea/Vomiting Pantoprazole Sodium (Protonix Iv) 40 mg IVPUSH Q12H [facility] Last Admin: 09/16/17 06:35 Dose: 40 mg Vancomycin HCl (Pharmacy To Dose - Vancomycin) 1 dose .XX ASDIRECTED [facility] - Exam General: Alert, Cooperative Neck: Supple Lungs: Clear to Auscultation, Normal Respiratory Effort. No: Crackles, Rales, Rhonchi Cardiovascular: Regular Rate, Regular Rhythm, No Murmurs Extremities: No Pedal Edema - Problem List & Annotations (1) Pneumonia SNOMED Code(s): 663439890 Code(s): J18.9 - PNEUMONIA, UNSPECIFIED ORGANISM Status: Acute Current Visit: Yes Qualifiers: Laterality: left Lung location: lower lobe of lung (2) Bacteremia SNOMED Code(s): 7942408 Code(s): R78.81 - BACTEREMIA Status: Acute Current Visit: Yes (3) Palliative care status SNOMED Code(s): 088874466 Code(s): Z51.5 - ENCOUNTER FOR PALLIATIVE CARE Status: Acute Current Visit: Yes (4) Dementia SNOMED Code(s): 73811503 Code(s): F03.90 - UNSPECIFIED DEMENTIA WITHOUT BEHAVIORAL DISTURBANCE Status: Acute Current Visit: Yes Qualifiers: Dementia type: Alzheimer's disease Alzheimer's disease onset: late-onset (5) Asymptomatic microscopic hematuria SNOMED Code(s): 516976150 Code(s): R31.21 - ASYMPTOMATIC MICROSCOPIC HEMATURIA Status: Acute Current Visit: Yes - Problem List Review Problem List Initiated/Reviewed/Updated: Yes - My Orders Last 24 Hours: My Active Orders 09/18/17 17:21 UA W/MICROSCOPIC [URIN] Routine 09/19/17 08:15 Levofloxacin [Levaquin] 750 mg PO Q48H - Plan Plan:: 1. Blood culture shows staph epi. Most likely contaminant. DC vancomycin and IV Levaquin. 2. Levaquin 750 mg every 48 hours by mouth. 3. Stop O2. 4. Had positive blood on dip. Micro-ordered for confirmation.
[2017-09-19] MEDS: Ferrous Sulfate 325 MG Tab PO SCH ×2 (08:59→20:16)
[2017-09-19] MEDS ORDERED: Levofloxacin 750 MG Tab PO SCH ×2 (09:00→15:00)
[2017-09-19] MEDS: Polyethylene Glycol 3350 Powder 17 GM Packet PO SCH (09:00)
[2017-09-19] MEDS: Furosemide 40 MG Tab PO SCH (09:00)
[2017-09-19] MEDS: Lutein/Minerals/Vitamin C/Vitamin E Acetate Cap PO SCH ×2 (09:01→20:18)
[2017-09-19] MEDS: FLUoxetine 20 MG Cap PO SCH (09:01)
[2017-09-19] MEDS: Memantine 10 MG Tab PO SCH ×2 (09:01→20:17)
[2017-09-19] MEDS: Gabapentin 100 MG Cap PO SCH ×2 (09:01→20:17)
[2017-09-19] MEDS ORDERED: Levofloxacin/Dextrose 5%-Water 150 ML IV SCH (12:00)
[2017-09-19] MEDS ORDERED: Levofloxacin 250 MG Tab PO SCH (17:00)
[2017-09-19] MEDS: Enoxaparin 40 MG/0.4 ML Syringe SUBCUT SCH (20:16)
[2017-09-20] MEDS: Pantoprazole 40 MG Tab.CR PO SCH (05:15)
[2017-09-20] MEDS: Levothyroxine 50 MCG Tab PO SCH (05:15)
[2017-09-20] MEDS: Albuterol 0.083% 2.5 MG/3 ML Neb Soln NEB SCH ×4 (07:32→20:18)
--- NOTE | 2017-09-20 08:08 | PCM.PN ---
- General Info Date of Service: 09/20/17 Admission Dx/Problem (Free Text): Patient is a same today. Doesn't really answer any questions or aspirin she's doing. - Patient Data Vitals - Most Recent: Last Vital Signs Temp 97.8 F 09/19/17 23:41 Pulse 96 09/20/17 07:34 Resp 18 09/19/17 23:41 BP 115/79 09/19/17 23:41 Pulse Ox 92 L 09/20/17 07:34 Weight - Most Recent: 221 lb I&O - Last 24 Hours: Intake & Output 09/19/17 09/20/17 09/20/17 22:59 06:59 14:59 Intake Total 225 100 Balance 225 100 Lab Results Last 24 Hours: Laboratory Results - last 24 hr 09/19/17 Range/Units 07:50 Urine Color Yellow (YELLOW) Urine Appearance Slightly cloudy (CLEAR) Urine pH 5.0 (5.0-6.5) Ur Specific [place] 1.020 (1.010-1.025) Urine Protein Negative (NEGATIVE) mg/dL Urine Glucose (UA) Normal (NEGATIVE) mg/dL Urine Ketones Negative (NEGATIVE) mg/dL Urine Occult Blood Moderate H (NEGATIVE) Urine Nitrite Negative (NEGATIVE) Urine Bilirubin Negative (NEGATIVE) Urine Urobilinogen 1 H (NEGATIVE) mg/dL Ur Leukocyte Esterase Negative (NEGATIVE) Urine RBC 5-10 (0) Urine WBC 0-5 (0) Ur Squamous Epith Cells Moderate H (NS,R,O) Urine Bacteria Many H (NS) Urine Mucus Few H (NS) Med Orders - Current: Current Medications Acetaminophen (Tylenol Extra Strength) 1,000 mg PO Q8H PRN PRN Reason: Pain Hydrocodone Bitart/Acetaminophen ([place] 325-7.5 Mg) 1 tab PO Q4H PRN PRN Reason: Pain Last Admin: 09/19/17 23:29 Dose: 1 tab Albuterol (Proventil Neb Soln) 2.5 mg NEB QIDRT [facility] Last Admin: 09/20/17 07:32 Dose: 2.5 mg Bisacodyl (Dulcolax) 5 mg PO DAILY PRN PRN Reason: Constipation Enoxaparin Sodium (Lovenox) 40 mg SUBCUT Q24H [facility] Last Admin: 09/19/17 20:16 Dose: 40 mg Ferrous Sulfate (Ferrous Sulfate) 325 mg PO BID [facility] Last Admin: 09/19/17 20:16 Dose: 325 mg Fluoxetine HCl (Prozac) 60 mg PO DAILY [facility] Last Admin: 09/19/17 09:01 Dose: 60 mg Furosemide (Lasix) 40 mg PO DAILY [facility] Last Admin: 09/19/17 09:00 Dose: 40 mg Gabapentin (Neurontin) 100 mg PO BID [facility] Last Admin: 09/19/17 20:17 Dose: 100 mg Levofloxacin (Levaquin) 750 mg PO Q48H [facility] Levothyroxine Sodium (Synthroid) 50 mcg PO DAILY@0600 [facility] Last Admin: 09/20/17 05:15 Dose: 50 mcg Magnesium Hydroxide (Milk Of Magnesia) 30 ml PO Q12H PRN PRN Reason: Constipation Memantine (Namenda) 10 mg PO BID [facility] Last Admin: 09/19/17 20:17 Dose: 10 mg Pantoprazole Sodium (Protonix) 40 mg PO DAILY@0600 [facility] Last Admin: 09/20/17 05:15 Dose: 40 mg Polyethylene Glycol (Miralax) 17 gm PO DAILY [facility] Last Admin: 09/19/17 09:00 Dose: Not Given Sodium Chloride (Saline Flush) 10 ml FLUSH ASDIRECTED PRN PRN Reason: Keep Vein Open Last Admin: 09/18/17 15:42 Dose: 10 ml Sodium Chloride (Saline Flush) 10 ml FLUSH ASDIRECTED PRN PRN Reason: Keep Vein Open Vit C/Vit E/Zinc/Copper/Lutein (Ocuvite Lutein) 1 each PO BID [facility] Last Admin: 09/19/17 20:18 Dose: 1 each Discontinued Medications Acetaminophen (Tylenol) 650 mg PO Q4H PRN PRN Reason: Pain (Mild 1-3)/fever [place] 1 gm/ Sodium (Chloride) 100 mls @ 200 mls/hr IV Q8H [facility] Last Admin: 09/15/17 19:02 Dose: 200 mls/hr [place] 1 gm/ Sodium (Chloride) 100 mls @ 200 mls/hr IV Q12H [facility] Levofloxacin/Dextrose 500 mg/ (Premix) 100 mls @ 100 mls/hr IV Q24H [facility] Last Admin: 09/17/17 08:46 Dose: 100 mls/hr Vancomycin HCl 1,000 mg/Vancomycin HCl 500 mg/ Sodium Chloride 500 mls @ 333.333 mls/hr IV Q24H [facility] Last Admin: 09/18/17 11:01 Dose: 250 mls/hr Levofloxacin/Dextrose (Levaquin In D5w 750 Mg/150 Ml) 150 mls @ 100 mls/hr IV Q48H [facility] Levofloxacin/Dextrose (Levaquin In D5w 250 Mg/50 Ml) 50 mls @ 25 mls/hr IV ONETIME ONE Stop: 09/17/17 13:14 Last Admin: 09/17/17 12:30 Dose: 25 mls/hr Levofloxacin (Levaquin) 750 mg PO Q48H [facility] Last Admin: 09/19/17 11:42 Dose: Not Given Levofloxacin (Levaquin) 750 mg PO Q48H [facility] Last Admin: 09/19/17 17:58 Dose: Not Given Levofloxacin (Levaquin) 750 mg PO Q48H [facility] Last Admin: 09/19/17 16:50 Dose: 750 mg Meropenem (Merrem) 1 gm IV Q12H [facility] Last Admin: 09/16/17 08:47 Dose: 1 gm Ondansetron HCl (Zofran) 4 mg IV Q4H PRN PRN Reason: Nausea/Vomiting Pantoprazole Sodium (Protonix Iv) 40 mg IVPUSH Q12H [facility] Last Admin: 09/16/17 06:35 Dose: 40 mg Vancomycin HCl (Pharmacy To Dose - Vancomycin) 1 dose .XX ASDIRECTED [facility] - Exam General: Alert, Cooperative Lungs: Clear to Auscultation, Normal Respiratory Effort, Crackles. No: Rales, Rhonchi Cardiovascular: Regular Rate, Regular Rhythm, No Murmurs Back Exam: Normal Inspection - Problem List & Annotations (1) Pneumonia SNOMED Code(s): 394813882 Code(s): J18.9 - PNEUMONIA, UNSPECIFIED ORGANISM Status: Acute Current Visit: Yes Qualifiers: Laterality: left Lung location: lower lobe of lung (2) Bacteremia SNOMED Code(s): 9175603 Code(s): R78.81 - BACTEREMIA Status: Acute Current Visit: Yes (3) Palliative care status SNOMED Code(s): 483195470 Code(s): Z51.5 - ENCOUNTER FOR PALLIATIVE CARE Status: Acute Current Visit: Yes (4) Dementia SNOMED Code(s): 72655905 Code(s): F03.90 - UNSPECIFIED DEMENTIA WITHOUT BEHAVIORAL DISTURBANCE Status: Acute Current Visit: Yes Qualifiers: Dementia type: Alzheimer's disease Alzheimer's disease onset: late-onset (5) Asymptomatic microscopic hematuria SNOMED Code(s): 797367106 Code(s): R31.21 - ASYMPTOMATIC MICROSCOPIC HEMATURIA Status: Acute Current Visit: Yes (6) Compression fracture SNOMED Code(s): 975084384 Code(s): BGL3704 - Status: Acute Current Visit: Yes - Problem List Review Problem List Initiated/Reviewed/Updated: Yes - My Orders Last 24 Hours: My Active Orders 09/21/17 17:00 Levofloxacin [Levaquin] 750 mg PO Q48H - Plan Plan:: 1. Transfer to halfway when bed available.
[2017-09-20] MEDS: FLUoxetine 20 MG Cap PO SCH (08:34)
[2017-09-20] MEDS: Memantine 10 MG Tab PO SCH ×2 (08:34→20:18)
[2017-09-20] MEDS: Lutein/Minerals/Vitamin C/Vitamin E Acetate Cap PO SCH ×2 (08:34→20:18)
[2017-09-20] MEDS: Polyethylene Glycol 3350 Powder 17 GM Packet PO SCH (08:34)
[2017-09-20] MEDS: Gabapentin 100 MG Cap PO SCH ×2 (08:34→20:18)
[2017-09-20] MEDS: Ferrous Sulfate 325 MG Tab PO SCH ×2 (08:34→20:18)
[2017-09-20] MEDS: Furosemide 40 MG Tab PO SCH (08:34)
[2017-09-20] MEDS: Enoxaparin 40 MG/0.4 ML Syringe SUBCUT SCH (20:17)
[2017-09-21] MEDS: Pantoprazole 40 MG Tab.CR PO SCH (05:06)
[2017-09-21] MEDS: Levothyroxine 50 MCG Tab PO SCH (05:06)
[2017-09-21] MEDS: Albuterol 0.083% 2.5 MG/3 ML Neb Soln NEB SCH ×2 (07:08→11:08)
--- NOTE | 2017-09-21 07:54 | PCM.PN ---
- General Info Date of Service: 09/21/17 Admission Dx/Problem (Free Text): Patient doesn't say anything today and just looks at me. - Patient Data Vitals - Most Recent: Last Vital Signs Temp 98.0 F 09/21/17 00:00 Pulse 88 09/21/17 07:45 Resp 18 09/21/17 00:00 BP 118/66 09/21/17 00:00 Pulse Ox 90 L 09/21/17 07:45 Weight - Most Recent: 221 lb Med Orders - Current: Current Medications Acetaminophen (Tylenol Extra Strength) 1,000 mg PO Q8H PRN PRN Reason: Pain Hydrocodone Bitart/Acetaminophen ([place] 325-7.5 Mg) 1 tab PO Q4H PRN PRN Reason: Pain Last Admin: 09/19/17 23:29 Dose: 1 tab Albuterol (Proventil Neb Soln) 2.5 mg NEB QIDRT [facility] Last Admin: 09/21/17 07:08 Dose: 2.5 mg Bisacodyl (Dulcolax) 5 mg PO DAILY PRN PRN Reason: Constipation Enoxaparin Sodium (Lovenox) 40 mg SUBCUT Q24H [facility] Last Admin: 09/20/17 20:17 Dose: 40 mg Ferrous Sulfate (Ferrous Sulfate) 325 mg PO BID [facility] Last Admin: 09/20/17 20:18 Dose: 325 mg Fluoxetine HCl (Prozac) 60 mg PO DAILY [facility] Last Admin: 09/20/17 08:34 Dose: 60 mg Furosemide (Lasix) 40 mg PO DAILY [facility] Last Admin: 09/20/17 08:34 Dose: 40 mg Gabapentin (Neurontin) 100 mg PO BID [facility] Last Admin: 09/20/17 20:18 Dose: 100 mg Levofloxacin (Levaquin) 750 mg PO Q48H [facility] Levothyroxine Sodium (Synthroid) 50 mcg PO DAILY@0600 [facility] Last Admin: 09/21/17 05:06 Dose: 50 mcg Magnesium Hydroxide (Milk Of Magnesia) 30 ml PO Q12H PRN PRN Reason: Constipation Memantine (Namenda) 10 mg PO BID [facility] Last Admin: 09/20/17 20:18 Dose: 10 mg Pantoprazole Sodium (Protonix) 40 mg PO DAILY@0600 [facility] Last Admin: 09/21/17 05:06 Dose: 40 mg Polyethylene Glycol (Miralax) 17 gm PO DAILY [facility] Last Admin: 09/20/17 08:34 Dose: 17 gm Sodium Chloride (Saline Flush) 10 ml FLUSH ASDIRECTED PRN PRN Reason: Keep Vein Open Last Admin: 09/18/17 15:42 Dose: 10 ml Sodium Chloride (Saline Flush) 10 ml FLUSH ASDIRECTED PRN PRN Reason: Keep Vein Open Tuberculin PPD (Aplisol) 5 unit IDERM ONETIME ONE Stop: 09/21/17 08:01 Vit C/Vit E/Zinc/Copper/Lutein (Ocuvite Lutein) 1 each PO BID [facility] Last Admin: 09/20/17 20:18 Dose: 1 each Discontinued Medications Acetaminophen (Tylenol) 650 mg PO Q4H PRN PRN Reason: Pain (Mild 1-3)/fever [place] 1 gm/ Sodium (Chloride) 100 mls @ 200 mls/hr IV Q8H [facility] Last Admin: 09/15/17 19:02 Dose: 200 mls/hr [place] 1 gm/ Sodium (Chloride) 100 mls @ 200 mls/hr IV Q12H [facility] Levofloxacin/Dextrose 500 mg/ (Premix) 100 mls @ 100 mls/hr IV Q24H [facility] Last Admin: 09/17/17 08:46 Dose: 100 mls/hr Vancomycin HCl 1,000 mg/Vancomycin HCl 500 mg/ Sodium Chloride 500 mls @ 333.333 mls/hr IV Q24H [facility] Last Admin: 09/18/17 11:01 Dose: 250 mls/hr Levofloxacin/Dextrose (Levaquin In D5w 750 Mg/150 Ml) 150 mls @ 100 mls/hr IV Q48H [facility] Levofloxacin/Dextrose (Levaquin In D5w 250 Mg/50 Ml) 50 mls @ 25 mls/hr IV ONETIME ONE Stop: 09/17/17 13:14 Last Admin: 09/17/17 12:30 Dose: 25 mls/hr Levofloxacin (Levaquin) 750 mg PO Q48H [facility] Last Admin: 09/19/17 11:42 Dose: Not Given Levofloxacin (Levaquin) 750 mg PO Q48H [facility] Last Admin: 09/19/17 17:58 Dose: Not Given Levofloxacin (Levaquin) 750 mg PO Q48H [facility] Last Admin: 09/19/17 16:50 Dose: 750 mg Meropenem (Merrem) 1 gm IV Q12H [facility] Last Admin: 09/16/17 08:47 Dose: 1 gm Ondansetron HCl (Zofran) 4 mg IV Q4H PRN PRN Reason: Nausea/Vomiting Pantoprazole Sodium (Protonix Iv) 40 mg IVPUSH Q12H [facility] Last Admin: 09/16/17 06:35 Dose: 40 mg Vancomycin HCl (Pharmacy To Dose - Vancomycin) 1 dose .XX ASDIRECTED [facility] - Exam General: Alert, Cooperative, No Acute Distress Neck: Supple Lungs: Clear to Auscultation, Normal Respiratory Effort. No: Rales, Rhonchi, Rub Cardiovascular: Regular Rate, Regular Rhythm, No Murmurs Extremities: No Pedal Edema - Problem List & Annotations (1) Pneumonia SNOMED Code(s): 737111226 Code(s): J18.9 - PNEUMONIA, UNSPECIFIED ORGANISM Status: Acute Current Visit: Yes Qualifiers: Laterality: left Lung location: lower lobe of lung (2) Palliative care status SNOMED Code(s): 222237886 Code(s): Z51.5 - ENCOUNTER FOR PALLIATIVE CARE Status: Acute Current Visit: Yes (3) Dementia SNOMED Code(s): 47272897 Code(s): F03.90 - UNSPECIFIED DEMENTIA WITHOUT BEHAVIORAL DISTURBANCE Status: Acute Current Visit: Yes Qualifiers: Dementia type: Alzheimer's disease Alzheimer's disease onset: late-onset (4) Asymptomatic microscopic hematuria SNOMED Code(s): 166249462 Code(s): R31.21 - ASYMPTOMATIC MICROSCOPIC HEMATURIA Status: Acute Current Visit: Yes (5) Compression fracture SNOMED Code(s): 476158233 Code(s): VHI1966 - Status: Acute Current Visit: Yes - Problem List Review Problem List Initiated/Reviewed/Updated: Yes - My Orders Last 24 Hours: My Active Orders 09/21/17 08:00 Tuberculin, PPD [Aplisol] 5 unit IDERM ONETIME ONE 09/21/17 17:00 Levofloxacin [Levaquin] 750 mg PO Q48H - Plan Plan:: 1. Transfer to [facility].
[2017-09-21] MEDS ORDERED: Tuberculin, PPD 5 Units/0.1 ML 1 ML MDV IDERM ONE (08:00)
--- NOTE | 2017-09-21 08:00 | PCM.DCSUM1 ---
Discharge Summary - Hospital Course Free Text/Narrative:: Social course-patient was admitted and placed on Levaquin 750 mg IV every 48 hours. She had 5-10 red blood cells in her urine. Chest x-ray was questionable for pneumonia left base. Her symptoms correlated with this. She had one blood culture was positive to not be staph epi most likely a contaminant. Patient had a compression fracture with the last month 2. She was not able to walk very well and the [facility] could not take her back. So she'll be transferred to [place] or [facility] with PT/OT. Repeat her chest x-ray in one month and UA in 7-10 days. Continue Levaquin for 4 more days. Brief History: Amina is an 87-year-old female admitted through the ER last night. She presented a cough for a day fever for a couple days low-grade. Diagnosed with left lower lobe pneumonia. She has had decreased energy,and failing health over the last couple months .She also has had frequent falls. Betty has dementia that has been stable, a compression fracture T11 that was discovered about 8 days ago, pain difficult to control. She also has major depression that has been well-controlled. She has obesity, hyperlipidemia and hypertension stable. History is difficult because patient is mostly nonverbal therefore I obtained this hystory from the clinic records and nursing staff. - Discharge Data Discharge Date: 09/21/17 Discharge Disposition: DC/Tfer to [facility] Condition: Fair - Discharge Diagnosis/Problem(s) (1) Pneumonia SNOMED Code(s): 261239695 ICD Code: J18.9 - PNEUMONIA, UNSPECIFIED ORGANISM Status: Acute Current Visit: Yes Qualifiers: Laterality: left Lung location: lower lobe of lung (2) Palliative care status SNOMED Code(s): 371327044 ICD Code: Z51.5 - ENCOUNTER FOR PALLIATIVE CARE Status: Acute Current Visit: Yes (3) Dementia SNOMED Code(s): 44065427 ICD Code: F03.90 - UNSPECIFIED DEMENTIA WITHOUT BEHAVIORAL DISTURBANCE Status: Acute Current Visit: Yes Qualifiers: Dementia type: Alzheimer's disease Alzheimer's disease onset: late-onset (4) Asymptomatic microscopic hematuria SNOMED Code(s): 567131637 ICD Code: R31.21 - ASYMPTOMATIC MICROSCOPIC HEMATURIA Status: Acute Current Visit: Yes (5) Compression fracture SNOMED Code(s): 867195351 ICD Code: [id number] - Status: Acute Current Visit: Yes - Patient Summary/Data Consults: Consultations 09/16/17 08:42 OT Evaluation and Treatment [CONS] Routine Please Evaluate and Treat. OT Reason for Consult: ADL's This query below is only for informational purposes and is not editable. Admission Diagnosis/Problem: Left lower lobe pneumonia PT Evaluation and Treatment [CONS] Routine Please Evaluate and Treat. PT Reason for Consult: Ambulation This query below is only for informational purposes and is not editable. Admission Diagnosis/Problem: Left lower lobe pneumonia - Patient Instructions Diet: Regular Diet as Tolerated Activity: As Tolerated Driving: Do Not Drive Showering/Bathing: May Shower Notify Provider of: Fever, Increased Pain, Swelling and Redness, Drainage, Nausea and/or Vomiting Other/Special Instructions: 1. Transfer to [facility]. 2. PT/OT evaluation. 3. UA in 7-10 days. Chest x-ray in one month. - Discharge Plan Prescriptions/Med Rec: Levofloxacin [Levaquin] 750 mg PO Q48H #3 tablet Home Medications: Home Meds Ferrous Sulfate [Feosol] 325 mg PO DAILY 11/30/14 [History] Levothyroxine [Synthroid] 50 mcg PO ACBREAKFAST 11/30/14 [History] Cholecalciferol (Vitamin D3) [Vitamin D3] 2,000 unit PO DAILY 03/10/16 [History] Cyanocobalamin (Vitamin B-12) [Vitamin B-12] 1,000 mcg PO DAILY 03/10/16 [ History] Furosemide [Lasix] 40 mg PO DAILY 03/10/16 [History] Gabapentin [Neurontin] 100 mg PO DAILY 03/10/16 [History] Acetaminophen 1,000 mg PO Q8H PRN #100 tablet 03/13/16 [Rx] Acetaminophen [Tylenol] 650 mg PO Q4H PRN 09/15/17 [History] Cranberry 500 mg PO DAILY 09/15/17 [History] FLUoxetine HCl [Prozac] 60 mg PO DAILY 09/15/17 [History] Hydrocodone/Acetaminophen [[place] 7.5-325 Tablet] 1 tab PO Q4H PRN 09/15/17 [ History] Memantine HCl [Namenda] 10 mg PO BID 09/15/17 [History] Pantoprazole Sodium [Protonix] 40 mg PO DAILY 09/15/17 [History] Polyethylene Glycol 3350 [Miralax] 17 gm PO DAILY 09/15/17 [History] Vit C/Olga Ac/Lut/Copper/ZnOx [Preservision Lutein Softgel] 1 cap PO BID [History] Levofloxacin [Levaquin] 750 mg PO Q48H #3 tablet 09/21/17 [Rx] Forms: ED Department Discharge Referrals: Lesley Gamboa TECH[employer]OLOGY INTEGRATION SPECIALIST [Primary Care Provider] - - Discharge Summary/Plan Comment DC Time >30 min.: No - Patient Data Vitals - Most Recent: Last Vital Signs Temp 98.0 F 09/21/17 00:00 Pulse 88 09/21/17 07:45 Resp 18 09/21/17 00:00 BP 118/66 09/21/17 00:00 Pulse Ox 90 L 09/21/17 07:45 Weight - Most Recent: 221 lb Med Orders - Current: Current Medications Acetaminophen (Tylenol Extra Strength) 1,000 mg PO Q8H PRN PRN Reason: Pain Hydrocodone Bitart/Acetaminophen ([place] 325-7.5 Mg) 1 tab PO Q4H PRN PRN Reason: Pain Last Admin: 09/19/17 23:29 Dose: 1 tab Albuterol (Proventil Neb Soln) 2.5 mg NEB QIDRT [facility] Last Admin: 09/21/17 07:08 Dose: 2.5 mg Bisacodyl (Dulcolax) 5 mg PO DAILY PRN PRN Reason: Constipation Enoxaparin Sodium (Lovenox) 40 mg SUBCUT Q24H [facility] Last Admin: 09/20/17 20:17 Dose: 40 mg Ferrous Sulfate (Ferrous Sulfate) 325 mg PO BID [facility] Last Admin: 09/20/17 20:18 Dose: 325 mg Fluoxetine HCl (Prozac) 60 mg PO DAILY [facility] Last Admin: 09/20/17 08:34 Dose: 60 mg Furosemide (Lasix) 40 mg PO DAILY [facility] Last Admin: 09/20/17 08:34 Dose: 40 mg Gabapentin (Neurontin) 100 mg PO BID [facility] Last Admin: 09/20/17 20:18 Dose: 100 mg Levofloxacin (Levaquin) 750 mg PO Q48H [facility] Levothyroxine Sodium (Synthroid) 50 mcg PO DAILY@0600 [facility] Last Admin: 09/21/17 05:06 Dose: 50 mcg Magnesium Hydroxide (Milk Of Magnesia) 30 ml PO Q12H PRN PRN Reason: Constipation Memantine (Namenda) 10 mg PO BID [facility] Last Admin: 09/20/17 20:18 Dose: 10 mg Pantoprazole Sodium (Protonix) 40 mg PO DAILY@0600 [facility] Last Admin: 09/21/17 05:06 Dose: 40 mg Polyethylene Glycol (Miralax) 17 gm PO DAILY [facility] Last Admin: 09/20/17 08:34 Dose: 17 gm Sodium Chloride (Saline Flush) 10 ml FLUSH ASDIRECTED PRN PRN Reason: Keep Vein Open Last Admin: 09/18/17 15:42 Dose: 10 ml Sodium Chloride (Saline Flush) 10 ml FLUSH ASDIRECTED PRN PRN Reason: Keep Vein Open Tuberculin PPD (Aplisol) 5 unit IDERM ONETIME ONE Stop: 09/21/17 08:01 Vit C/Vit E/Zinc/Copper/Lutein (Ocuvite Lutein) 1 each PO BID [facility] Last Admin: 09/20/17 20:18 Dose: 1 each Discontinued Medications Acetaminophen (Tylenol) 650 mg PO Q4H PRN PRN Reason: Pain (Mild 1-3)/fever [place] 1 gm/ Sodium (Chloride) 100 mls @ 200 mls/hr IV Q8H [facility] Last Admin: 09/15/17 19:02 Dose: 200 mls/hr [place]openem 1 gm/ Sodium (Chloride) 100 mls @ 200 mls/hr IV Q12H [facility] Levofloxacin/Dextrose 500 mg/ (Premix) 100 mls @ 100 mls/hr IV Q24H [facility] Last Admin: 09/17/17 08:46 Dose: 100 mls/hr Vancomycin HCl 1,000 mg/Vancomycin HCl 500 mg/ Sodium Chloride 500 mls @ 333.333 mls/hr IV Q24H [facility] Last Admin: 09/18/17 11:01 Dose: 250 mls/hr Levofloxacin/Dextrose (Levaquin In D5w 750 Mg/150 Ml) 150 mls @ 100 mls/hr IV Q48H [facility] Levofloxacin/Dextrose (Levaquin In D5w 250 Mg/50 Ml) 50 mls @ 25 mls/hr IV ONETIME ONE Stop: 09/17/17 13:14 Last Admin: 09/17/17 12:30 Dose: 25 mls/hr Levofloxacin (Levaquin) 750 mg PO Q48H [facility] Last Admin: 09/19/17 11:42 Dose: Not Given Levofloxacin (Levaquin) 750 mg PO Q48H [facility] Last Admin: 09/19/17 17:58 Dose: Not Given Levofloxacin (Levaquin) 750 mg PO Q48H [facility] Last Admin: 09/19/17 16:50 Dose: 750 mg Meropenem (Merrem) 1 gm IV Q12H [facility] Last Admin: 09/16/17 08:47 Dose: 1 gm Ondansetron HCl (Zofran) 4 mg IV Q4H PRN PRN Reason: Nausea/Vomiting Pantoprazole Sodium (Protonix Iv) 40 mg IVPUSH Q12H [facility] Last Admin: 09/16/17 06:35 Dose: 40 mg Vancomycin HCl (Pharmacy To Dose - Vancomycin) 1 dose .XX ASDIRECTED [facility] *Q Meaningful Use (DIS) - VTE *Q VTE Criteria *Q: - Stroke *Q Stroke Criteria *Q: - AMI *Q AMI Criteria *Q:
[2017-09-21] MEDS: Lutein/Minerals/Vitamin C/Vitamin E Acetate Cap PO SCH (08:26)
[2017-09-21] MEDS: Memantine 10 MG Tab PO SCH (08:26)
[2017-09-21] MEDS: Gabapentin 100 MG Cap PO SCH (08:26)
[2017-09-21] MEDS: Ferrous Sulfate 325 MG Tab PO SCH (08:26)
[2017-09-21] MEDS: Furosemide 40 MG Tab PO SCH (08:26)
[2017-09-21] MEDS: FLUoxetine 20 MG Cap PO SCH (08:26)
[2017-09-21] MEDS: Polyethylene Glycol 3350 Powder 17 GM Packet PO SCH (08:27)
[2017-09-21 11:12] VITALS: BP 140/82
[2017-09-21] MEDS ORDERED: Levofloxacin 750 MG Tab PO SCH (17:00)
== END 2017-09-21 10:30 | DRG 195 ==
LOC: FB.ED 17:07 → FB.MS 19:08
PROVIDERS: ADMIT Emergency Medicine; ATTEND Family Medicine
DX: J18.9 Pneumonia, unspecified organism (principal); I11.0 Hypertensive heart disease with heart failure; I50.9 Heart failure, unspecified; G30.1 Alzheimer's disease with late onset; F02.80 Dementia in other diseases classified elsewhere, unspecified severity, without behavioral disturbance, psychotic disturbance, mood disturbance, and anxiety; R79.89 Other specified abnormal findings of blood chemistry; E03.9 Hypothyroidism, unspecified; R29.6 Repeated falls; R53.81 Other malaise; R05 Cough; R50.9 Fever, unspecified; Z66 Do not resuscitate; Z51.5 Encounter for palliative care; R31.21 Asymptomatic microscopic hematuria; D64.9 Anemia, unspecified; I25.10 Atherosclerotic heart disease of native coronary artery without angina pectoris; G89.29 Other chronic pain; M19.90 Unspecified osteoarthritis, unspecified site; E66.9 Obesity, unspecified; Z68.38 Body mass index [BMI] 38.0-38.9, adult; E78.5 Hyperlipidemia, unspecified; F32.9 Major depressive disorder, single episode, unspecified; E53.8 Deficiency of other specified B group vitamins; E55.9 Vitamin D deficiency, unspecified; F41.1 Generalized anxiety disorder; K21.9 Gastro-esophageal reflux disease without esophagitis; M48.54XD Collapsed vertebra, not elsewhere classified, thoracic region, subsequent encounter for fracture with routine healing; Z11.1 Encounter for screening for respiratory tuberculosis; H35.30 Unspecified macular degeneration; Z87.440 Personal history of urinary (tract) infections; Z88.1 Allergy status to other antibiotic agents; Z88.8 Allergy status to other drugs, medicaments and biological substances
CPT/HCPCS: 36415; 71045; 80048; 80053; 81001; 81003; 83605; 83880; 84443; 84484; 85025; 86140; 86580; 87040; 87077; 87186; 87804; 93005; 94640; 96365; 97161-GP; 97165-GO; 97530-GO; 97530-GP; 97535-GO; 99285; A9270-GY; C9113; J1650; J1956; J2185; J3370; J7030; J7040; J7050

== ENCOUNTER 2019-09-20 13:54 | Emergency (ER) | payer MEDICARE, OTHER ==
[2019-09-20] MEDS ORDERED: Alum Hydroxide/Mag Hydroxide 15 ML, Lidocaine 2% 15 ML PO ONE ×2 (14:36)
--- NOTE | 2019-09-20 14:53 | EDM.PDOC ---
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 - Related Data Allergies Allergy/AdvReac Type Severity Reaction Status Date / Time amoxicillin trihydrate Allergy Stomach Verified 09/20/19 14:14 [From Augmentin] Upset potassium clavulanate Allergy Stomach Verified 09/20/19 14:14 [From Augmentin] Upset rofecoxib [From Vioxx] Allergy Stomach Verified 09/20/19 14:14 Upset Home Meds: Home Meds Ferrous Sulfate [Feosol] 325 mg PO DAILY 11/30/14 [History] Levothyroxine [Synthroid] 50 mcg PO ACBREAKFAST 11/30/14 [History] Cholecalciferol (Vitamin D3) [Vitamin D3] 2,000 unit PO DAILY 03/10/16 [History] Cyanocobalamin (Vitamin B-12) [Vitamin B-12] 1,000 mcg PO DAILY 03/10/16 [ History] Furosemide [Lasix] 40 mg PO DAILY 03/10/16 [History] Gabapentin [Neurontin] 100 mg PO DAILY 03/10/16 [History] Acetaminophen 1,000 mg PO Q8H PRN #100 tablet 03/13/16 [Rx] Acetaminophen [Tylenol] 650 mg PO Q4H PRN 09/15/17 [History] Cranberry 500 mg PO DAILY 09/15/17 [History] FLUoxetine HCl [Prozac] 60 mg PO DAILY 09/15/17 [History] Hydrocodone/Acetaminophen [[place] 7.5-325 Tablet] 1 tab PO Q4H PRN 09/15/17 [ History] Memantine HCl [Namenda] 10 mg PO BID 09/15/17 [History] Pantoprazole Sodium [Protonix] 40 mg PO DAILY 09/15/17 [History] Polyethylene Glycol 3350 [Miralax] 17 gm PO DAILY 09/15/17 [History] Vit C/Vit E AC/Lut/Copper/Zinc [Preservision Lutein Softgel] 1 cap PO BID [History] levoFLOXacin [Levaquin] 750 mg PO Q48H #3 tablet 09/21/17 [Rx] Sulfamethoxazole/Trimethoprim [Bactrim Ds Tablet] 1 each PO BID #6 tablet [Rx] Past Medical History Other HEENT History: suspect glaucoma, is not on medications Cardiovascular History: Reports: CAD, Heart Failure, High Cholesterol, Hypertension, SOB on Exertion Gastrointestinal History: Reports: GERD, Other (See Below) Other Gastrointestinal History: hx of abdominal hernia. 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: Musculoskeletal History: Reports: Back Pain, Chronic, Osteoarthritis, Other ( See Below) Other Musculoskeletal History: fall 1 week ago Neurological History: Reports: Other (See Below) Other Neuro History: dementia Psychiatric History: Reports: Dementia, Depression Endocrine/Metabolic History: Reports: Hypothyroidism Hematologic History: Reports: Anemia, B12 Deficiency, Iron Deficiency Other Hematologic History: vitamin D deficiency Dermatologic History: Reports: None - Infectious Disease History Infectious Disease History: Reports: Hepatitis A - Past Surgical History HEENT Surgical History: Reports: Cataract Surgery Other Respiratory Surgeries/Procedures: report says that pt has external dyspnea Endocrine Surgical History: Reports: None Social & Family History - Family History Family Medical History: Noncontributory Cardiac: Reports: Prior Cardiac Arrest Respiratory: Reports: TB Other Respiratory Family Hisory: pt's dad d/t TB Oncologic: Reports: Other (See Below) Other Oncologic Family History: stomach cancer- mother - Caffeine Use Caffeine Use: Reports: None Course - Vital Signs Last Recorded V/S: Last Vital Signs Temp 36.0 C L 09/20/19 13:54 Pulse 102 H 09/20/19 13:54 Resp 20 09/20/19 13:54 BP 88/62 L 09/20/19 13:54 Pulse Ox 92 L 09/20/19 13:54 - Orders/Labs/Meds Orders: Active Orders 24 hr Category Date Time Status EKG Documentation Completion [RC] ASDIRECTED Care 09/20/19 14:18 Active CULTURE URINE [RM] Stat Lab 09/20/19 15:07 Ordered EKG 12 Lead [EK] Routine Ther 09/20/19 14:18 Ordered Labs: Laboratory Tests 09/20/19 09/20/19 09/20/19 Range/Units 14:05 14:05 14:05 WBC 5.6 (4.5-12.0) X10-3/uL RBC 4.96 (3.23-5.20) x10(6)uL Hgb 15.1 (11.5-15.5) g/dL Hct 46.2 (30.0-51.3) % MCV 93.2 (80-96) fL MCH 30.4 (27.7-33.6) pg MCHC 32.7 (32.2-35.4) g/dL RDW 15.0 (11.5-15.5) % Plt Count 202 (125-369) X10(3)uL MPV 10.7 H (7.4-10.4) fL Neut % (Auto) 50.3 (46-82) % Lymph % (Auto) 33.3 (13-37) % [place] % (Auto) 10.5 (4-12) % Eos % (Auto) 5 (1.0-5.0) % Baso % (Auto) 1 (0-2) % Neut # (Auto) 2.7 (1.6-8.3) # Lymph # (Auto) 1.9 (0.6-5.0) # [place]pine # (Auto) 0.6 (0.0-1.3) # Eos # (Auto) 0.3 (0.0-0.8) # Baso # (Auto) 0.1 (0.0-0.2) # Sodium 143 (135-145) mmol/L Potassium 4.2 (3.5-5.3) mmol/L Chloride 105 (100-110) mmol/L Carbon Dioxide 34 H (21-32) mmol/L BUN 15 (7-18) mg/dL Creatinine 1.1 H (0.55-1.02) mg/dL Est Cr Clr Drug Dosing 30.53 mL/min Estimated GFR (MDRD) 47 L (>60) BUN/Creatinine Ratio 13.6 (9-20) Glucose 107 (80-116) mg/dL Calcium 9.1 (8.6-10.2) mg/dL Total Bilirubin 0.3 (0.1-1.3) mg/dL AST 27 H D (5-25) IU/L ALT 16 D (12-36) U/L Alkaline Phosphatase 98 (56-112) IU/L Troponin I 5.1 (4.0-60.3) pg/mL NT-Pro-B Natriuret Pep (<=450) pg/mL Total Protein 7.3 (6.0-8.0) g/dL Albumin 3.1 L (3.2-4.6) g/dL Globulin 4.2 g/dL Albumin/Globulin Ratio 0.7 Urine Color (YELLOW) Urine Appearance (CLEAR) Urine pH (5.0-6.5) Ur Specific [place] (1.010-1.025) Urine Protein (NEGATIVE) mg/dL Urine Glucose (UA) (NORMAL) mg/dL Urine Ketones (NEGATIVE) mg/dL Urine Occult Blood (NEGATIVE) Urine Nitrite (NEGATIVE) Urine Bilirubin (NEGATIVE) Urine Urobilinogen (NEGATIVE) mg/dL Ur Leukocyte Esterase (NEGATIVE) Urine RBC (0-5) Urine WBC (0-5) Ur Squamous Epith Cells (NS,R,O) Amorphous Sediment Urine Bacteria (NS) 09/20/19 09/20/19 Range/Units 14:05 14:50 WBC (4.5-12.0) X10-3/uL RBC (3.23-5.20) x10(6)uL Hgb (11.5-15.5) g/dL Hct (30.0-51.3) % MCV (80-96) fL MCH (27.7-33.6) pg MCHC (32.2-35.4) g/dL RDW (11.5-15.5) % Plt Count (125-369) X10(3)uL MPV (7.4-10.4) fL Neut % (Auto) (46-82) % Lymph % (Auto) (13-37) % [place] % (Auto) (4-12) % Eos % (Auto) (1.0-5.0) % Baso % (Auto) (0-2) % Neut # (Auto) (1.6-8.3) # Lymph # (Auto) (0.6-5.0) # [place] # (Auto) (0.0-1.3) # Eos # (Auto) (0.0-0.8) # Baso # (Auto) (0.0-0.2) # Sodium (135-145) mmol/L Potassium (3.5-5.3) mmol/L Chloride (100-110) mmol/L Carbon Dioxide (21-32) mmol/L BUN (7-18) mg/dL Creatinine (0.55-1.02) mg/dL Est Cr Clr Drug Dosing mL/min Estimated GFR (MDRD) (>60) BUN/Creatinine Ratio (9-20) Glucose (80-116) mg/dL Calcium (8.6-10.2) mg/dL Total Bilirubin (0.1-1.3) mg/dL AST (5-25) IU/L ALT (12-36) U/L Alkaline Phosphatase (56-112) IU/L Troponin I (4.0-60.3) pg/mL NT-Pro-B Natriuret Pep 522 H (<=450) pg/mL Total Protein (6.0-8.0) g/dL Albumin (3.2-4.6) g/dL Globulin g/dL Albumin/Globulin Ratio Urine Color Yellow (YELLOW) Urine Appearance Clear (CLEAR) Urine pH 5.0 (5.0-6.5) Ur Specific [place] 1.020 (1.010-1.025) Urine Protein Negative (NEGATIVE) mg/dL Urine Glucose (UA) Normal (NORMAL) mg/dL Urine Ketones 15 H (NEGATIVE) mg/dL Urine Occult Blood Negative (NEGATIVE) Urine Nitrite Negative (NEGATIVE) Urine Bilirubin Negative (NEGATIVE) Urine Urobilinogen Normal (NEGATIVE) mg/dL Ur Leukocyte Esterase Large H (NEGATIVE) Urine RBC 5-10 H (0-5) Urine WBC 20-30 H (0-5) Ur Squamous Epith Cells Few H (NS,R,O) Amorphous Sediment Moderate Urine Bacteria Moderate H (NS) Meds: Medications Discontinued Medications Generic Name Dose Route Start Last Admin Trade Name Freq PRN Reason Stop Dose Admin Al Hydroxide/Mg Hydroxide 15 0 ml 09/20/19 14:36 ml/ Lidocaine HCl 15 ml PO 09/20/19 14:37 ONETIME ONE Departure - Departure Time of Disposition: 15:15 Disposition: DC/Tfer to [facility] 03 Condition: Good Clinical Impression: Atypical chest pain, UTI (urinary tract infection) Prescriptions: Sulfamethoxazole/Trimethoprim [Bactrim Ds Tablet] 1 each PO BID #6 tablet Forms: ED Department Discharge Sepsis Event Note - Evaluation Sepsis Screening Result: No Definite Risk - Focused Exam Vital Signs: Vital Signs Temp Pulse Resp BP Pulse Ox 09/20/19 13:54 36.0 C L 102 H 20 88/62 L 92 L Date Exam was Performed: 09/20/19 Time Exam was Performed: 15:16 - My Orders Last 24 Hours: My Active Orders 09/20/19 14:18 EKG Documentation Completion [RC] ASDIRECTED EKG 12 Lead [EK] Routine 09/20/19 15:07 CULTURE URINE [RM] Stat - Assessment/Plan Last 24 Hours: My Active Orders 09/20/19 14:18 EKG Documentation Completion [RC] ASDIRECTED EKG 12 Lead [EK] Routine 09/20/19 15:07 CULTURE URINE [RM] Stat
--- NOTE | 2019-09-20 15:16 | CR ---
INDICATION: Chest pain. CHEST, 1 VIEW: Portable AP upright view of the chest, 09/20/19, was compared with 10/19/17 and 09/15/17. Evidence of exogenous obesity is again noted, along with cardiomegaly and tortuous aorta calcified minimally in the arch. A definite active infiltrate or effusion was not identified, although minimal patchy pneumonia of the costophrenic angles is difficult to exclude with poor penetration in those areas, especially on the left. IMPRESSION: No definite acute process. MTDD
--- NOTE | 2019-09-20 15:19 | EDM.PDOC ---
ED HPI GENERAL MEDICAL PROBLEM - General Chief Complaint: Chest Pain Time Seen by Provider: 09/20/19 13:55 Source of Information: Reports: Patient History Limitations: Reports: No Limitations - History of Present Illness INITIAL COMMENTS - FREE TEXT/NARRATIVE: Patient presented to the ED from the [facility] because of left sided chest pain which started today. When nurseing home staff touch her on the chest she screams. She was also noted to have altered LOC,she looks more confused than usual and is irritable. Treatments [employer]: Reports: EKG - Related Data Allergies Allergy/AdvReac Type Severity Reaction Status Date / Time amoxicillin trihydrate Allergy Stomach Verified 09/20/19 14:14 [From Augmentin] Upset potassium clavulanate Allergy Stomach Verified 09/20/19 14:14 [From Augmentin] Upset rofecoxib [From Vioxx] Allergy Stomach Verified 09/20/19 14:14 Upset Home Meds: Home Meds Ferrous Sulfate [Feosol] 325 mg PO DAILY 11/30/14 [History] Levothyroxine [Synthroid] 50 mcg PO ACBREAKFAST 11/30/14 [History] Cholecalciferol (Vitamin D3) [Vitamin D3] 2,000 unit PO DAILY 03/10/16 [History] Cyanocobalamin (Vitamin B-12) [Vitamin B-12] 1,000 mcg PO DAILY 03/10/16 [ History] Furosemide [Lasix] 40 mg PO DAILY 03/10/16 [History] Gabapentin [Neurontin] 100 mg PO DAILY 03/10/16 [History] Acetaminophen 1,000 mg PO Q8H PRN #100 tablet 03/13/16 [Rx] Acetaminophen [Tylenol] 650 mg PO Q4H PRN 09/15/17 [History] Cranberry 500 mg PO DAILY 09/15/17 [History] FLUoxetine HCl [Prozac] 60 mg PO DAILY 09/15/17 [History] Hydrocodone/Acetaminophen [[place] 7.5-325 Tablet] 1 tab PO Q4H PRN 09/15/17 [ History] Memantine HCl [Namenda] 10 mg PO BID 09/15/17 [History] Pantoprazole Sodium [Protonix] 40 mg PO DAILY 09/15/17 [History] Polyethylene Glycol 3350 [Miralax] 17 gm PO DAILY 09/15/17 [History] Vit C/Vit E AC/Lut/Copper/Zinc [Preservision Lutein Softgel] 1 cap PO BID [History] levoFLOXacin [Levaquin] 750 mg PO Q48H #3 tablet 09/21/17 [Rx] Sulfamethoxazole/Trimethoprim [Bactrim Ds Tablet] 1 each PO BID #6 tablet [Rx] Past Medical History Other HEENT History: suspect glaucoma, is not on medications Cardiovascular History: Reports: CAD, Heart Failure, High Cholesterol, Hypertension, SOB on Exertion Gastrointestinal History: Reports: GERD, Other (See Below) Other Gastrointestinal History: hx of abdominal hernia. 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: Musculoskeletal History: Reports: Back Pain, Chronic, Osteoarthritis, Other ( See Below) Other Musculoskeletal History: fall 1 week ago Neurological History: Reports: Other (See Below) Other Neuro History: dementia Psychiatric History: Reports: Dementia, Depression Endocrine/Metabolic History: Reports: Hypothyroidism Hematologic History: Reports: Anemia, B12 Deficiency, Iron Deficiency Other Hematologic History: vitamin D deficiency Dermatologic History: Reports: None - Infectious Disease History Infectious Disease History: Reports: Hepatitis A - Past Surgical History HEENT Surgical History: Reports: Cataract Surgery Other Respiratory Surgeries/Procedures: report says that pt has external dyspnea Endocrine Surgical History: Reports: None Social & Family History - Family History Family Medical History: Noncontributory Cardiac: Reports: Prior Cardiac Arrest Respiratory: Reports: TB Other Respiratory Family Hisory: pt's dad d/t TB Oncologic: Reports: Other (See Below) Other Oncologic Family History: stomach cancer- mother - Caffeine Use Caffeine Use: Reports: None ED ROS GENERAL - Review of Systems Review Of Systems: See Below Constitutional: Reports: No Symptoms HEENT: Reports: No Symptoms Respiratory: Reports: No Symptoms Cardiovascular: Reports: Chest Pain GI/Abdominal: Reports: No Symptoms : Reports: No Symptoms Musculoskeletal: Reports: No Symptoms Skin: Reports: No Symptoms Neurological: Reports: No Symptoms Psychiatric: Reports: No Symptoms ED EXAM, GENERAL - Physical Exam Exam: See Below Exam Limited By: Altered Mental Status General Appearance: Alert Eye Exam: Bilateral Eye: PERRL Ears: Normal External Exam, Hearing Grossly Normal Nose: Normal Inspection, Normal Mucosa, No Blood Throat/Mouth: Normal Inspection, Normal Lips, Normal Teeth, Normal Gums Head: Atraumatic, Normocephalic Neck: Normal Inspection Respiratory/Chest: No Respiratory Distress, Lungs Clear, Normal Breath Sounds, Other (left chest wall tenderness) Cardiovascular: Normal Peripheral Pulses, Regular Rate, Rhythm, No Edema, No Gallop, No JVD, No Rub GI/Abdominal: Normal Bowel Sounds, Soft, Non-Tender, No Organomegaly Back Exam: Normal Inspection, Full Range of Motion Extremities: Normal Inspection, Normal Range of Motion Neurological: Alert, Oriented, CN II-XII Intact, Normal Cognition Course - Vital Signs Text/Narrative:: Labs/EKG/CXR was discussed with patient and family and verbalized ful understanding EKG-NSR CXR-neg Trop-neg GI cocktal po x1 UC-pending Last Recorded V/S: Last Vital Signs Temp 36.0 C L 09/20/19 13:54 Pulse 102 H 09/20/19 13:54 Resp 20 09/20/19 13:54 BP 88/62 L 09/20/19 13:54 Pulse Ox 92 L 09/20/19 13:54 - Orders/Labs/Meds Orders: Active Orders 24 hr Category Date Time Status EKG Documentation Completion [RC] ASDIRECTED Care 09/20/19 14:18 Active CULTURE URINE [RM] Stat Lab 09/20/19 15:07 Ordered EKG 12 Lead [EK] Routine Ther 09/20/19 14:18 Ordered Labs: Laboratory Tests 09/20/19 09/20/19 09/20/19 Range/Units 14:05 14:05 14:05 WBC 5.6 (4.5-12.0) X10-3/uL RBC 4.96 (3.23-5.20) x10(6)uL Hgb 15.1 (11.5-15.5) g/dL Hct 46.2 (30.0-51.3) % MCV 93.2 (80-96) fL MCH 30.4 (27.7-33.6) pg MCHC 32.7 (32.2-35.4) g/dL RDW 15.0 (11.5-15.5) % Plt Count 202 (125-369) X10(3)uL MPV 10.7 H (7.4-10.4) fL Neut % (Auto) 50.3 (46-82) % Lymph % (Auto) 33.3 (13-37) % [place] % (Auto) 10.5 (4-12) % Eos % (Auto) 5 (1.0-5.0) % Baso % (Auto) 1 (0-2) % Neut # (Auto) 2.7 (1.6-8.3) # Lymph # (Auto) 1.9 (0.6-5.0) # [place] # (Auto) 0.6 (0.0-1.3) # Eos # (Auto) 0.3 (0.0-0.8) # Baso # (Auto) 0.1 (0.0-0.2) # Sodium 143 (135-145) mmol/L Potassium 4.2 (3.5-5.3) mmol/L Chloride 105 (100-110) mmol/L Carbon Dioxide 34 H (21-32) mmol/L BUN 15 (7-18) mg/dL Creatinine 1.1 H (0.55-1.02) mg/dL Est Cr Clr Drug Dosing 30.53 mL/min Estimated GFR (MDRD) 47 L (>60) BUN/Creatinine Ratio 13.6 (9-20) Glucose 107 (80-116) mg/dL Calcium 9.1 (8.6-10.2) mg/dL Total Bilirubin 0.3 (0.1-1.3) mg/dL AST 27 H D (5-25) IU/L ALT 16 D (12-36) U/L Alkaline Phosphatase 98 (56-112) IU/L Troponin I 5.1 (4.0-60.3) pg/mL NT-Pro-B Natriuret Pep (<=450) pg/mL Total Protein 7.3 (6.0-8.0) g/dL Albumin 3.1 L (3.2-4.6) g/dL Globulin 4.2 g/dL Albumin/Globulin Ratio 0.7 Urine Color (YELLOW) Urine Appearance (CLEAR) Urine pH (5.0-6.5) Ur Specific [place] (1.010-1.025) Urine Protein (NEGATIVE) mg/dL Urine Glucose (UA) (NORMAL) mg/dL Urine Ketones (NEGATIVE) mg/dL Urine Occult Blood (NEGATIVE) Urine Nitrite (NEGATIVE) Urine Bilirubin (NEGATIVE) Urine Urobilinogen (NEGATIVE) mg/dL Ur Leukocyte Esterase (NEGATIVE) Urine RBC (0-5) Urine WBC (0-5) Ur Squamous Epith Cells (NS,R,O) Amorphous Sediment Urine Bacteria (NS) 09/20/19 09/20/19 Range/Units 14:05 14:50 WBC (4.5-12.0) X10-3/uL RBC (3.23-5.20) x10(6)uL Hgb (11.5-15.5) g/dL Hct (30.0-51.3) % MCV (80-96) fL MCH (27.7-33.6) pg MCHC (32.2-35.4) g/dL RDW (11.5-15.5) % Plt Count (125-369) X10(3)uL MPV (7.4-10.4) fL Neut % (Auto) (46-82) % Lymph % (Auto) (13-37) % [place] % (Auto) (4-12) % Eos % (Auto) (1.0-5.0) % Baso % (Auto) (0-2) % Neut # (Auto) (1.6-8.3) # Lymph # (Auto) (0.6-5.0) # [place] # (Auto) (0.0-1.3) # Eos # (Auto) (0.0-0.8) # Baso # (Auto) (0.0-0.2) # Sodium (135-145) mmol/L Potassium (3.5-5.3) mmol/L Chloride (100-110) mmol/L Carbon Dioxide (21-32) mmol/L BUN (7-18) mg/dL Creatinine (0.55-1.02) mg/dL Est Cr Clr Drug Dosing mL/min Estimated GFR (MDRD) (>60) BUN/Creatinine Ratio (9-20) Glucose (80-116) mg/dL Calcium (8.6-10.2) mg/dL Total Bilirubin (0.1-1.3) mg/dL AST (5-25) IU/L ALT (12-36) U/L Alkaline Phosphatase (56-112) IU/L Troponin I (4.0-60.3) pg/mL NT-Pro-B Natriuret Pep 522 H (<=450) pg/mL Total Protein (6.0-8.0) g/dL Albumin (3.2-4.6) g/dL Globulin g/dL Albumin/Globulin Ratio Urine Color Yellow (YELLOW) Urine Appearance Clear (CLEAR) Urine pH 5.0 (5.0-6.5) Ur Specific [place] 1.020 (1.010-1.025) Urine Protein Negative (NEGATIVE) mg/dL Urine Glucose (UA) Normal (NORMAL) mg/dL Urine Ketones 15 H (NEGATIVE) mg/dL Urine Occult Blood Negative (NEGATIVE) Urine Nitrite Negative (NEGATIVE) Urine Bilirubin Negative (NEGATIVE) Urine Urobilinogen Normal (NEGATIVE) mg/dL Ur Leukocyte Esterase Large H (NEGATIVE) Urine RBC 5-10 H (0-5) Urine WBC 20-30 H (0-5) Ur Squamous Epith Cells Few H (NS,R,O) Amorphous Sediment Moderate Urine Bacteria Moderate H (NS) Meds: Medications Discontinued Medications Generic Name Dose Route Start Last Admin Trade Name Freq PRN Reason Stop Dose Admin Al Hydroxide/Mg Hydroxide 15 0 ml 09/20/19 14:36 ml/ Lidocaine HCl 15 ml PO 09/20/19 14:37 ONETIME ONE Departure - Departure Time of Disposition: 15:20 Disposition: DC/Tfer to [facility] 03 Reason for Transfer *Q: Other (Patient is a [place] resident) Condition: Good Clinical Impression: Atypical chest pain, UTI (urinary tract infection) Prescriptions: Sulfamethoxazole/Trimethoprim [Bactrim Ds Tablet] 1 each PO BID #6 tablet Instructions: Urinary Tract Infection, Adult, Nonspecific Chest Pain, Easy-to- Read Referrals: Lesley Gamboa, IT SERVICE TECHNICIAN [Primary Care Provider] - Forms: ED Department Discharge Additional Instructions: see [place] discharge instructions Sepsis Event Note - Evaluation Sepsis Screening Result: No Definite Risk - Focused Exam Vital Signs: Vital Signs Temp Pulse Resp BP Pulse Ox 09/20/19 13:54 36.0 C L 102 H 20 88/62 L 92 L Date Exam was Performed: 09/20/19 Time Exam was Performed: 15:27 - My Orders Last 24 Hours: My Active Orders 09/20/19 14:18 EKG Documentation Completion [RC] ASDIRECTED EKG 12 Lead [EK] Routine 09/20/19 15:07 CULTURE URINE [RM] Stat - Assessment/Plan Last 24 Hours: My Active Orders 09/20/19 14:18 EKG Documentation Completion [RC] ASDIRECTED EKG 12 Lead [EK] Routine 09/20/19 15:07 CULTURE URINE [RM] Stat
[2019-09-20 16:06] VITALS: BP 114/66; PULSE 76
== END 2019-09-20 15:41 | disposition home or self-care (01) ==
LOC: FB.ED 13:54
DX: R07.89 Other chest pain (principal); N39.0 Urinary tract infection, site not specified; I11.0 Hypertensive heart disease with heart failure; I50.9 Heart failure, unspecified; F03.90 Unspecified dementia, unspecified severity, without behavioral disturbance, psychotic disturbance, mood disturbance, and anxiety; E03.9 Hypothyroidism, unspecified; I25.10 Atherosclerotic heart disease of native coronary artery without angina pectoris; Z88.1 Allergy status to other antibiotic agents; Z79.899 Other long term (current) drug therapy
CPT/HCPCS: 36415; 71045; 80053; 81001; 83880; 84484; 85025; 87086; 93005; 99285; A9270